=== PATIENT | female | born 1990 | race African-American/Black ===

== ENCOUNTER 2016-09-19 18:07 | Emergency (ER) | payer MEDICAID ==
--- NOTE | 2016-09-19 18:17 | ER Document Report ---
ED Medical Screen (RME) - General Stated Complaint: NAUSEA, DIZZINESS Time seen by provider: 18:14 Mode of Arrival: Ambulatory Information source: Patient Notes: 26-year-old female presents to the ED for dizziness nausea and the shakes this morning. She is 34 weeks and 2 days . States she's thrown up today 3 times. I have greeted and performed a rapid initial assessment of this patient. A comprehensive ED assessment and evaluation of the patient, analysis of test results and completion of medical decision making process will be conducted by an additional ED providers. TRAVEL OUTSIDE OF THE [place] IN LAST 30 DAYS: No Physical Exam - Vital signs Vitals: Temp Pulse Resp BP Pulse Ox 98.1 F 117 H 16 138/74 H 98 09/19/16 18:13 09/19/16 18:13 09/19/16 18:13 09/19/16 18:13 09/19/16 18:13 Course - Vital Signs Vital signs: Temp Pulse Resp BP Pulse Ox 98.1 F 117 H 16 138/74 H 98 09/19/16 18:13 09/19/16 18:13 09/19/16 18:13 09/19/16 18:13 09/19/16 18:13
[2016-09-19] MEDS ORDERED: ONDANSETRON HCL INJ/PF 4 MG/2 ML SDV IV ONE (18:40)
[2016-09-19] MEDS ORDERED: NORMAL SALINE 1000 ML 1,000 ML IV ONE (18:40)
--- NOTE | 2016-09-19 18:51 | ER Document Report ---
ED General - General Chief Complaint: Dizziness Stated Complaint: NAUSEA, DIZZINESS Mode of Arrival: Ambulatory Notes: 18-year-old female approximately 34 weeks gestation here with complaints of nausea vomiting 3-4 episodes today as well as some lightheadedness but no actual syncope. She states that she felt this way during the beginning of her however this improved and the symptoms started back up a week ago with the nausea and then the vomiting started today. She does not have any nausea medication at home and has not taken anything for the symptoms. She denies any abdominal pain vaginal bleeding discharge. She has not been able to keep anything down. TRAVEL OUTSIDE OF THE [place] IN LAST 30 DAYS: No - Related Data Allergies/Adverse Reactions: No Known Allergies Allergy (Verified 09/19/16 18:20) Past Medical History - General Information source: Patient - Social History Smoking Status: Never Smoker Chew tobacco use (# tins/day): No Drug Abuse: None Family History: Reviewed & Not Pertinent Patient has suicidal ideation: No Patient has homicidal ideation: No Renal/ Medical History: Denies: Hx Peritoneal Dialysis Review of Systems - Review of Systems Notes: See history of present illness for pertinent positive review of systems; otherwise all review of systems have been reviewed and are negative Physical Exam - Vital signs Vitals: Temp Pulse Resp BP Pulse Ox 98.1 F 117 H 16 138/74 H 98 09/19/16 18:13 09/19/16 18:13 09/19/16 18:13 09/19/16 18:13 09/19/16 18:13 - Notes Notes: PHYSICAL EXAMINATION: GENERAL: Well-appearing and in no acute distress. HEAD: Atraumatic, normocephalic. EYES: Pupils equal round and reactive to light, extraocular movements intact, sclera anicteric, conjunctiva are normal. ENT: nares patent, oropharynx clear without exudates. Moist mucous membranes. NECK: Normal range of motion, supple without lymphadenopathy LUNGS: CTAB and equal. No wheezes rales or rhonchi. HEART: Regular rhythm without murmurs; mildly tachycardic to 110s ABDOMEN: Soft, gravid abdomen, no tenderness. No guarding, no rebound EXTREMITIES: Normal range of motion, no pitting edema. No cyanosis. NEUROLOGICAL: Cranial nerves grossly intact. Normal sensory/motor exams. PSYCH: Normal mood, normal affect. SKIN: Warm, Dry, normal turgor, no rashes or lesions noted Course - Re-evaluation Re-evalutation: 09/19/16 18:58 MEDICAL DECISION MAKING: Concern for hyperemesis gravidarum versus viral gastroenteritis versus kidney failure Will give IV fluids and nausea medication Awaiting the results of the blood work at this time Patient understands and agrees to the plan of care 09/19/16 20:59 Results reviewed there is some hypoglycemia mild hyponatremia hypokalemia Urinalysis shows trace bacteria thus will read prescription for Macrobid Patient feels much better and is no longer having any nausea Discussed results with her and have ordered potassium and Tylenol per her request Home with prescription Zofran and Phenergan tab Phenergan suppository Macrobid 09/19/16 21:06 Patient's repeat exam reveals sig improved HR now in 90s - Vital Signs Vital signs: Temp Pulse Resp BP Pulse Ox 98.1 F 117 H 16 138/74 H 98 09/19/16 18:13 09/19/16 18:13 09/19/16 18:40 09/19/16 18:13 09/19/16 18:13 - Laboratory Result Diagrams: 09/19/16 18:20 09/19/16 20:05 Laboratory results interpreted by me: 09/19/16 09/19/16 09/19/16 18:20 18:20 20:05 MCV 74 L MCH 24.7 L RDW 16.1 H Sodium 133.5 L Potassium 3.5 L Carbon Dioxide 21 L BUN 4 L Creatinine 0.51 L Glucose 69 L Calcium 7.9 L ALT 55 H Alkaline Phosphatase 257 H Total Protein 5.4 L Albumin 3.1 L Urine Protein 30 H Urine Ketones 80 H Urine Ascorbic Acid 40 H Discharge - Discharge Clinical Impression: Lightheadedness, Nausea and vomiting during Condition: Good Disposition: HOME, SELF-CARE Instructions: Antinausea Medication ([facility]) Additional Instructions: You were seen in the emergency department at [facility]. Use the Zofran dissolvable for nausea. If this does not work use the Phenergan tablets. As a last resort you may use the Phenergan suppositories. You were given a prescription for Phenergan which is a sedating medication, be sure not to operate heavy machinery (example - driving) and be sure you are not too sedated to walk appropriately. Please followup with your primary physician in the next few days for further management/evaluation. Please return to the emergency department for worsening of symptoms or any symptom that you deem to be concerning or life-threatening. Thank you for allowing us to be part of your care. Prescriptions: Promethazine HCl [Phenergan 25 mg Tablet] 1 tab PO Q8HP PRN #15 tablet PRN Reason: Promethazine HCl 25 mg RC Q8HP PRN #7 supp.rect PRN Reason: For Nausea/Vomiting Nitrofurantoin/Nitrofuran Mac [Macrobid 100 mg Capsule] 1 tab PO BID #20 capsule Ondansetron [Zofran Odt 4 mg Tablet] 1 tab PO Q4H PRN #15 tab.rapdis PRN Reason: For Nausea/Vomiting Referrals: CAITLIN ESCOBAR MD [Primary Care Provider] - Follow up as needed
[2016-09-19 19:08] LABS: ABSOLUTE LYMPHOCYTES (AUTO) 3.3 10^3/uL (0.5-4.7); ABSOLUTE NEUT (AUTO) 5.9 10^3/uL (1.7-8.2); BASOPHILS % (AUTO) 0.3 % (0-2); EOSINOPHILS % (AUTO) 0.1 % (0-6); HEMATOCRIT 37.7 % (36.0-47.0); HEMOGLOBIN 12.5 g/dL (12.0-15.5); HGB HCT DIFFERENCE -0.2; LYMPHOCYTES % (AUTO) 32.2 % (13-45); MEAN CORPUSCULAR HEMOGLOBIN 24.7 pg (27.0-33.4); MEAN CORPUSCULAR HGB CONC 33.2 g/dL (32.0-36.0); MEAN CORPUSCULAR VOLUME 74 fl (80-97); MONOCYTES % (AUTO) 10.1 % (3-13); RED BLOOD COUNT 5.07 10^6/uL (3.72-5.28); RED CELL DISTRIBUTION WIDTH 16.1 % (11.5-14.0); SEGMENTED NEUTROPHILS % (AUTO) 57.3 % (42-78); WHITE BLOOD COUNT 10.3 10^3/uL (4.0-10.5)
[2016-09-19 19:12] LABS: APPEARANCE,URINE SLIGHTLY-CLOUDY; BILIRUBIN,URINE NEGATIVE (NEGATIVE); GLUCOSE, URINE NEGATIVE (NEGATIVE); KETONES,URINE 80 mg/dL (NEGATIVE); LEUKOCYTE ESTERASE,URINE NEGATIVE (NEGATIVE); NITRITE,URINE NEGATIVE (NEGATIVE); PROTEIN,URINE 30 mg/dL (NEGATIVE); UROBILINOGEN,URINE NEGATIVE mg/dL (<2.0)
[2016-09-19 20:40] LABS: ALANINE AMINOTRANSFERASE 55 U/L (9-52); ALBUMIN 3.1 g/dL (3.5-5.0); ALKALINE PHOSPHATASE 257 U/L (38-126); ANION GAP 12 (5-19); ASPARTATE AMINO TRANSFERASE 32 U/L (14-36); BILIRUBIN,TOTAL 0.9 mg/dL (0.2-1.3); BLOOD UREA NITROGEN 4 mg/dL (7-20); CALCIUM 7.9 mg/dL (8.4-10.2); CARBON DIOXIDE 21 mmol/L (22-30); CHLORIDE 101 mmol/L (98-107); CREATININE RESULT 0.51 mg/dL (0.52-1.25); GLUCOSE 69 mg/dL (75-110); POTASSIUM 3.5 mmol/L (3.6-5.0); SODIUM 133.5 mmol/L (137-145); TOTAL PROTEIN 5.4 g/dL (6.3-8.2)
[2016-09-19] MEDS ORDERED: DEXTROSE 5%-NORMAL SALINE 1,000 ML IV ONE (20:52)
[2016-09-19] MEDS ORDERED: ACETAMINOPHEN 325 MG TABLET PO ONE (20:58)
[2016-09-19] MEDS ORDERED: POTASSIUM CHLORIDE 10 MEQ TABLET.SA PO ONE (20:58)
[2016-09-19 22:24] VITALS: BP 121/63
== END 2016-09-19 22:23 | disposition home or self-care (01) ==
LOC: ER 18:07
DX: O26.93 Pregnancy related conditions, unspecified, third trimester (principal); R42 Dizziness and giddiness; R11.2 Nausea with vomiting, unspecified; Z3A.34 34 weeks gestation of pregnancy
CPT/HCPCS: 99284; 96361; 96374; 36415; 85025; 80053; 81001; J3490; J2405; J7030

== ENCOUNTER 2016-10-29 05:58 | Inpatient (IN) | payer MEDICAID ==
[2016-10-29 06:25] LABS: APPEARANCE,URINE SLIGHTLY-CLOUDY; BILIRUBIN,URINE NEGATIVE (NEGATIVE); GLUCOSE, URINE NEGATIVE (NEGATIVE); KETONES,URINE NEGATIVE (NEGATIVE); LEUKOCYTE ESTERASE,URINE NEGATIVE (NEGATIVE); NITRITE,URINE NEGATIVE (NEGATIVE); PROTEIN,URINE NEGATIVE (NEGATIVE); URINE SPECIFIC GRAVITY 1.005; UROBILINOGEN,URINE NEGATIVE mg/dL (<2.0)
[2016-10-29 06:41] LABS: URINE BARBITURATES SCREEN NEGATIVE; URINE METHADONE SCREEN NEGATIVE; URINE OPIATES LOW NEGATIVE; URINE PHENCYCLIDINE SCREEN NEGATIVE
[2016-10-29] MEDS ORDERED: HYDROXYZINE PAMOATE 50 MG CAPSULE ONE (07:32)
--- NOTE | 2016-10-29 08:00 | L&D Flow Sheet ---
LD Flowsheet Datetime Report Generated by CPN: 10/29/2016 08:00 Datetime: 10/29/2016 07:50 NBP Sys/Jackie/Mean (mmHg): 166 (QS system process) : 86 (QS system process) : 118 (QS system process) Pulse: 65 (QS system process) LaborFlag: Labor (QS system process) Datetime: 10/29/2016 07:35 Medications Medication Comments: Vistiril 50mg PO given (Priscilla Medina RN) Communication Comments: Reviewed kick counts, labor signs. Pt verbalizes understanding and will follow up at her appointment at 9am. (Priscilla Medina RN) Datetime: 10/29/2016 07:29 Communication Comments: Monitors removed. (Priscilla Medina, RN) Datetime: 10/29/2016 07:26 NBP Sys/Jackie/Mean (mmHg): 138 (QS system process) : 96 (QS system process) : 113 (QS system process) Pulse: 71 (QS system process) LaborFlag: Labor (QS system process) Datetime: 10/29/2016 07:25 Communication Comments: Report given to Dr. Aron. Orders to give Vistiril 50mg PO for comfort measures and to follow up at her appointment today. (Priscilla Medina, RN) Datetime: 10/29/2016 07:15 Patient Care I/O Interventions: Up to BR (Priscilla Medina, RN) Datetime: 10/29/2016 07:12 Communication Communication: Report Given to @ A.Medina, RN; care relinquished at this time. (Gina Field, RN) Datetime: 10/29/2016 07:00 Uterine Activity Monitor Mode: External; Palpation ([facility], RN) Frequency (min): 2-4 ([facility], RN) Quality: Mild (Gina Field, RN) Duration (sec): 60-100 ([facility], RN) Resting Tone (Palpate): Relaxed ([facility], RN) Assessment A Monitor Mode: External US ([facility], RN) FHR Baseline Rate : 125 ([facility], RN) Variability: Moderate 6-25 bpm ([facility], RN) Accelerations: 15X15 ([facility], RN) Decelerations: None ([facility], ) Datetime: 10/29/2016 06:57 Pain Pain Scale: 3 ([facility], ) Pain Presence: Intermittent ([facility], RN) Pain Type: Cramping ([facility], RN) Pain Location: Abdomen ([facility], RN) Pain Goal: 0 ([facility], ) Pain Relief Measures: Comfort Measures ([facility], ) Pain Coping: Talking Through Contractions; Breathing Through Contractions ([facility], RN) Vaginal Bleeding: Normal Show ([facility], ) Maternal Assessment Level of Consciousness: Fully Conscious ([facility], ) DTR's/Clonus: DTRs 2+; No Clonus ([facility], RN) Headache: Denies ([facility], RN) Breath Sounds, Left: Clear and Equal ([facility], RN) Breath Sounds, Right: Clear and Equal ([facility], RN) Nausea/Vomiting: Denies ([facility], RN) RUQ Epigastric Pain: Denies ([facility], RN) Teaching Instructional Method: Verbal; Patient Instructed; Family/Support Person Instructed; Verbalized Understanding (Gina Field, RN) LaborFlag: Labor (QS system process) Datetime: 10/29/2016 06:53 Vaginal Exam Dilatation (cm): 1.0 (Gina Carver, RN) Effacement (%): 50 (Gina Carver, RN) Station: -2 ([facility]ina Carevr, RN) Exam by: J.Field RN (Gina Carver, RN) Datetime: 10/29/2016 06:43 Patient Care I/O Interventions: Up to BR (Gina Field, RN) Datetime: 10/29/2016 06:30 Uterine Activity Monitor Mode: External; Palpation (Gina Field, RN) Frequency (min): 4.5-7 (Gina Field, RN) Quality: Mild (Gina Field, RN) Duration (sec): 60-100 (Gina Field, RN) Resting Tone (Palpate): Relaxed (Gina Field, RN) Assessment A Monitor Mode: External US (Gina Field, RN) FHR Baseline Rate : 125 (Gina Field, RN) Variability: Moderate 6-25 bpm (Gina Field, RN) Accelerations: None (Gina Field, RN) Decelerations: None (Gina Field, RN) Datetime: 10/29/2016 06:19 NBP Sys/Jackie/Mean (mmHg): 143 (QS system process) : 96 (QS system process) : 115 (QS system process) Pulse: 56 (QS system process) LaborFlag: Labor (QS system process) Datetime: 10/29/2016 06:14 Vital Signs Stage of : Labor (Priscilla Medina, RN)
[2016-10-29] MEDS ORDERED: DEXAMETHASONE SOD PHOSPHATE INJ 4 MG/1 ML VIAL ONE (08:21)
[2016-10-29] MEDS ORDERED: KETOROLAC TROMETHAMINE 60 MG/2 ML SDV ONE (08:21)
[2016-10-29] MEDS ORDERED: ONDANSETRON HCL INJ/PF 4 MG/2 ML SDV ONE (08:21)
[2016-10-29] MEDS ORDERED: OXYTOCIN/NORMAL SALINE 20 UNIT/1,000 ML RTUINJ ONE ×2 (08:37→23:29)
[2016-10-29] MEDS ORDERED: PENICILLIN G-K 5 MILLION UNIT VIAL ONE ×4 (08:37→21:49)
[2016-10-29] MEDS ORDERED: RINGERS SOLUTION,LACTATED 1,000 ML IV PRN (08:51)
[2016-10-29] MEDS ORDERED: OXYTOCIN/NORMAL SALINE 1,000 ML IV PRN (08:51)
[2016-10-29] MEDS ORDERED: RINGERS SOLUTION,LACTATED 300 ML IV ONE (08:51)
[2016-10-29] MEDS ORDERED: PENICILLIN G POTASSIUM 5,000,000 UNIT in DEXTROSE 5%-WATER 100 ML IV ONE (08:52)
[2016-10-29 08:55] LABS: ABSOLUTE EOSINOPHILS # (AUTO) 0.1 10^3/uL (0.0-0.6); ABSOLUTE LYMPHOCYTES (AUTO) 4.3 10^3/uL (0.5-4.7); ABSOLUTE MONOCYTES (AUTO) 0.7 10^3/uL (0.1-1.4); ABSOLUTE NEUT (AUTO) 4.7 10^3/uL (1.7-8.2); BASOPHILS % (AUTO) 0.4 % (0-2); EOSINOPHILS % (AUTO) 1.1 % (0-6); HEMATOCRIT 38.9 % (36.0-47.0); HEMOGLOBIN 13.2 g/dL (12.0-15.5); HGB HCT DIFFERENCE 0.7; LYMPHOCYTES % (AUTO) 43.1 % (13-45); MEAN CORPUSCULAR HEMOGLOBIN 24.7 pg (27.0-33.4); MEAN CORPUSCULAR HGB CONC 33.9 g/dL (32.0-36.0); MEAN CORPUSCULAR VOLUME 73 fl (80-97); MONOCYTES % (AUTO) 7.5 % (3-13); RED BLOOD COUNT 5.33 10^6/uL (3.72-5.28); SEGMENTED NEUTROPHILS % (AUTO) 47.9 % (42-78); WHITE BLOOD COUNT 9.9 10^3/uL (4.0-10.5)
[2016-10-29 09:18] LABS: ALANINE AMINOTRANSFERASE 25 U/L (9-52); ALBUMIN 3.4 g/dL (3.5-5.0); ALKALINE PHOSPHATASE 205 U/L (38-126); ANION GAP 9 (5-19); ASPARTATE AMINO TRANSFERASE 22 U/L (14-36); BILIRUBIN,TOTAL 0.6 mg/dL (0.2-1.3); BLOOD UREA NITROGEN 8 mg/dL (7-20); CALCIUM 9.4 mg/dL (8.4-10.2); CARBON DIOXIDE 24 mmol/L (22-30); CHLORIDE 106 mmol/L (98-107); CREATININE RESULT 0.56 mg/dL (0.52-1.25); GLUCOSE 75 mg/dL (75-110); LDH 484 U/L (313-618); POTASSIUM 4.2 mmol/L (3.6-5.0); SODIUM 138.8 mmol/L (137-145); TOTAL PROTEIN 6.5 g/dL (6.3-8.2); URIC ACID 5.9 mg/dL (2.5-6.2)
--- NOTE | 2016-10-29 10:00 | L&D Flow Sheet ---
LD Flowsheet Datetime Report Generated by CPN: 10/29/2016 10:00 Datetime: 10/29/2016 09:55 NBP Sys/Jackie/Mean (mmHg): 132 (QS system process) : 69 (QS system process) : 97 (QS system process) Pulse: 71 (QS system process) LaborFlag: Labor (QS system process) Datetime: 10/29/2016 09:47 NBP Sys/Jackie/Mean (mmHg): 162 (QS system process) : 80 (QS system process) : 113 (QS system process) Pulse: 70 (QS system process) LaborFlag: Labor (QS system process) Datetime: 10/29/2016 09:44 Temperature (F): 98.0 (Priscilla Medina RN) Temperature (C): 36.7 (QS system process) Pitocin (milliunit): Pitocin Started (milliunits) @ 2; Pitocin 20 Units in 1000ml NS (Priscilla Medina RN) Antibiotics: Penicillin IV (Units) @ 2866617 (Priscilla Medina RN) LaborFlag: Labor (QS system process) Datetime: 10/29/2016 09:42 NBP Sys/Jackie/Mean (mmHg): 184 (QS system process) : 120 (QS system process) : 147 (QS system process) Pulse: 63 (QS system process) LaborFlag: Labor (QS system process) Datetime: 10/29/2016 09:14 IV/Blood Work: IV Started; IV Bolus Started (Priscilla Medina, RN) Datetime: 10/29/2016 09:00 Monitor Mode: External (Priscilla Medina, RN) Frequency (min): 3-10 (Priscilla Medina, RN) Quality: Mild (Priscilla Medina, RN) Duration (sec): 50-60 (Priscilla Medina, RN) Duration Criteria: Less than Two 120 Second Contractions (Priscilla Medina, RN) Pattern: Normal: <= 5 Contractions in 10 Minutes (Priscilla Medina, RN) Resting Tone (Palpate): Relaxed (Priscilla Medina, RN) Monitor Mode: External US (Priscilla Medina RN) Comments: unable to determine due to pt position, attempting to get IV started (Priscilla Medina, RN) Datetime: 10/29/2016 08:30 Monitor Mode: External (Priscilla Medina, RN) Frequency (min): 3-6 (Priscilla Medina RN) Quality: Mild (Priscilla Medina, RN) Duration (sec): 50-60 (Priscilla Medina, RN) Resting Tone (Palpate): Relaxed (Priscilla Medina, RN) Monitor Mode: External US (Priscilla Medina RN) FHR Baseline Rate : 125 (Priscilla Medina RN) Variability: Moderate 6-25 bpm (Priscilla Medina, RN) Accelerations: 10X10 (Priscilla Medina, RN) Decelerations: None (Priscilla Medina, RN) Datetime: 10/29/2016 08:24 Dilatation (cm): 1.0 (Priscilla Medina RN) Effacement (%): 70 (Priscilla Medina RN) Station: -2 (Priscilla Medina RN) Exam by: Tracy Strong CNM (Priscilla Medina RN) Vaginal Bleeding: None (Priscilla Medina RN) Cervix, Consistency: Soft (Priscilla Medina, RN) Cervix, Position: Midposition (Priscilla Medina, RN) Datetime: 10/29/2016 08:21 Communication Comments: A. Emmel CNM at bedside (Priscilla Medina, RN) Datetime: 10/29/2016 08:07 NBP Sys/Jackie/Mean (mmHg): 148 (QS system process) : 88 (QS system process) : 113 (QS system process) Pulse: 71 (QS system process) LaborFlag: Labor (QS system process) Datetime: 10/29/2016 08:04 NBP Sys/Jackie/Mean (mmHg): 166 (QS system process) : 99 (QS system process) : 127 (QS system process) Pulse: 63 (QS system process) LaborFlag: Labor (QS system process) Datetime: 10/29/2016 08:00 Pain Scale: 2 (Priscilla Medina RN) Pain Presence: Intermittent (Priscilla Medina RN) Pain Type: Contraction (Priscilla Medina RN) Vaginal Bleeding: Normal Show (Priscilla Medina RN) Level of Consciousness: Fully Conscious (Priscilla Medina RN) DTR's/Clonus: DTRs 2+; No Clonus (Priscilla Medina RN) Headache: Denies (Priscilla Medina RN) Breath Sounds, Left: Clear and Equal (Priscilla Medina RN) Breath Sounds, Right: Clear and Equal (Priscilla Medina RN) Nausea/Vomiting: Denies (Priscilla Medina RN) RUQ Epigastric Pain: Denies (Priscilla Medina RN) LaborFlag: Labor (QS system process)
[2016-10-29] MEDS ORDERED: EPHEDRINE SULFATE INJ 50 MG/1 ML AMPULE ONE (10:29)
[2016-10-29] MEDS ORDERED: FENTANYL CITRATE INJ/PF 100 MCG/2 ML AMPUL ONE ×2 (10:29→23:28)
[2016-10-29] MEDS ORDERED: PHENYLEPHRINE HCL INJ/PF 10 MG/1 ML SDV ONE (10:29)
[2016-10-29] MEDS ORDERED: FENTANYL/BUPIVACAINE/NS/PF 200 MCG/100 ML RTUINJ EPI ONE ×2 (10:30→21:39)
[2016-10-29] MEDS ORDERED: BUPIVACAINE HCL 0.25 % INJ/PF (2.5 MG/1 ML) 30 ML VIAL ONE (10:30)
--- NOTE | 2016-10-29 12:00 | L&D Flow Sheet ---
LD Flowsheet Datetime Report Generated by CPN: 10/29/2016 12:00 Datetime: 10/29/2016 11:46 I/O Interventions: Delgado Cath Inserted (Priscilla Medina, RN) Datetime: 10/29/2016 11:45 NBP Sys/Jackie/Mean (mmHg): 150 (QS system process) : 82 (QS system process) : 108 (QS system process) Pulse: 79 (QS system process) LaborFlag: Labor (QS system process) Datetime: 10/29/2016 11:43 NBP Sys/Jackie/Mean (mmHg): 140 (QS system process) : 73 (QS system process) : 99 (QS system process) Pulse: 80 (QS system process) LaborFlag: Labor (QS system process) Datetime: 10/29/2016 11:42 NBP Sys/Jackie/Mean (mmHg): 141 (QS system process) : 72 (QS system process) : 100 (QS system process) Pulse: 72 (QS system process) LaborFlag: Labor (QS system process) Datetime: 10/29/2016 11:39 NBP Sys/Jackie/Mean (mmHg): 159 (QS system process) : 89 (QS system process) : 118 (QS system process) Pulse: 72 (QS system process) LaborFlag: Labor (QS system process) Datetime: 10/29/2016 11:38 NBP Sys/Jackie/Mean (mmHg): 154 (QS system process) : 79 (QS system process) : 110 (QS system process) Pulse: 72 (QS system process) LaborFlag: Labor (QS system process) Datetime: 10/29/2016 11:37 NBP Sys/Jackie/Mean (mmHg): 163 (QS system process) : 83 (QS system process) : 112 (QS system process) Pulse: 72 (QS system process) Epidural Procedure: Loading Dose (Priscilla Medina RN) Epidural Procedure: Cath Placed (Priscilla Medina RN) LaborFlag: Labor (QS system process) Datetime: 10/29/2016 11:36 Epidural Procedure: Test Dose (Priscilla Medina, RN) Datetime: 10/29/2016 11:35 Pulse: 83 (QS system process) SpO2 (%): 96 (QS system process) LaborFlag: Labor (QS system process) Datetime: 10/29/2016 11:34 NBP Sys/Jackie/Mean (mmHg): 156 (QS system process) : 97 (QS system process) : 119 (QS system process) Pulse: 99 (QS system process) LaborFlag: Labor (QS system process) Datetime: 10/29/2016 11:30 Pulse: 81 (QS system process) Pulse: 84 (QS system process) SpO2 (%): 98 (QS system process) SpO2 (%): 93 (QS system process) LaborFlag: Labor (QS system process) Datetime: 10/29/2016 11:28 Procedure Verify: Correct Patient Identity; Correct Side and Site are Marked; Accurate Procedure Consent Form; Agreement on Procedure to be Done; Correct Patient Position (Priscilla Medina RN) Epidural Positioning: Sitting (Priscilla Medina RN) Anesthesia Comments: Dr Almeida at bedside (Priscilla Medina RN) Datetime: 10/29/2016 11:20 I/O Interventions: Up to BR (Priscilla Medina, VIRY) Datetime: 10/29/2016 11:10 I/O Interventions: Popsicle (Priscilla Medina RN) Datetime: 10/29/2016 11:00 Monitor Mode: External; Palpation (Priscilla Medina RN) Frequency (min): 2-3 (Priscilla Medina RN) Quality: Mild (Priscilla Medina RN) Duration (sec): 50-80 (Priscilla Medina RN) Duration Criteria: Less than Two 120 Second Contractions (Priscilla Medina RN) Pattern: Normal: <= 5 Contractions in 10 Minutes (Priscilla Medina RN) Resting Tone (Palpate): Relaxed (Priscilla Medina RN) Monitor Mode: External US (Priscilla Medina RN) FHR Baseline Rate : 125 (Priscilla Medina RN) Variability: Moderate 6-25 bpm (Priscilla Medina RN) Accelerations: 15X15 (Priscilla Medina RN) Decelerations: None (Priscilla Medina RN) Pain Scale: 3 (Priscilla Medina RN) Pain Presence: Intermittent (Priscilla Medina RN) Pain Type: Contraction (Priscilla Medina RN) Pain Location: Abdomen (Priscilla Medina RN) Pain Relief Measures: Comfort Measures (Priscilla Medina RN) Pain Coping: Requesting Pain Medication or Epidural (Priscilla Medina RN) Pitocin (milliunit): Pitocin Increased to (milliunits) @ 10 (Priscilla Medina RN) LaborFlag: Labor (QS system process) Datetime: 10/29/2016 10:55 NBP Sys/Jackie/Mean (mmHg): 172 (QS system process) : 105 (QS system process) : 132 (QS system process) Pulse: 69 (QS system process) LaborFlag: Labor (QS system process) Datetime: 10/29/2016 10:45 Comments: unable to determine due to pt position, readjusting monitors (Priscilla Medina RN) Pitocin (milliunit): Pitocin Remains (milliunits) @ 8 (Priscilla Medina RN) Datetime: 10/29/2016 10:43 Patient Position/Activity: Left Lateral (Priscilla Medina, RN) Datetime: 10/29/2016 10:39 IV/Blood Work: New IV Bag Hung (Priscilla Medina, RN) Datetime: 10/29/2016 10:38 Monitor Interventions for FHR: Ultrasound Adjusted (Priscilla Medina, RN) Patient Position/Activity: Right Lateral (Priscilla Medina, RN) Communication: RN at Bedside (Priscilla Medina, RN) Datetime: 10/29/2016 10:37 Monitor Interventions for UA: [place] Adjusted (Priscilla Medina RN) Datetime: 10/29/2016 10:33 Monitor Interventions for UA: [place] Adjusted (Priscilla Medina RN) Datetime: 10/29/2016 10:30 Monitor Mode: External (Priscilla Medina RN) Frequency (min): 3-4 (Priscilla Medina RN) Quality: Mild (Priscilla Medina RN) Duration (sec): 50-70 (Priscilla Medina RN) Resting Tone (Palpate): Relaxed (Priscilla Medina RN) Monitor Mode: External US (Priscilla Medina, RN) FHR Baseline Rate : 130 (Priscilla Medina RN) Variability: Moderate 6-25 bpm (Priscilla Medina, RN) Accelerations: 15X15 (Priscilla Medina, RN) Decelerations: None (Priscilla Medina RN) Pitocin (milliunit): Pitocin Increased to (milliunits) @ 8 (Priscilla Medina, RN) Datetime: 10/29/2016 10:26 NBP Sys/Jackie/Mean (mmHg): 153 (QS system process) : 76 (QS system process) : 107 (QS system process) Pulse: 67 (QS system process) LaborFlag: Labor (QS system process) Datetime: 10/29/2016 10:16 NBP Sys/Jackie/Mean (mmHg): 166 (QS system process) : 89 (QS system process) : 120 (QS system process) Pulse: 63 (QS system process) LaborFlag: Labor (QS system process) Datetime: 10/29/2016 10:15 Monitor Mode: External (Priscilla Medina, RN) Frequency (min): irreg (Priscilla Medina, RN) Quality: Mild (Priscilla Medina, RN) Duration (sec): 50-70 (Priscilla Medina, RN) Resting Tone (Palpate): Relaxed (Priscilla Medina, RN) Monitor Mode: External US (Priscilla Medina RN) FHR Baseline Rate : 130 (Priscilla Medina, RN) Variability: Moderate 6-25 bpm (Priscilla Medina, RN) Accelerations: 10X10 (Priscilla Medina, RN) Decelerations: None (Priscilla Medina, RN) Pitocin (milliunit): Pitocin Increased to (milliunits) @ 6 (Priscilla Medina, RN) Datetime: 10/29/2016 10:07 I/O Interventions: Up to BR (Priscilla Medina, RN) Datetime: 10/29/2016 10:00 Monitor Mode: External (Priscilla Medina RN) Frequency (min): irreg (Priscilla Medina RN) Quality: Mild (Priscilla Medina RN) Duration (sec): 50-70 (Priscilla Medina RN) Resting Tone (Palpate): Relaxed (Priscilla Medina RN) Monitor Mode: External US (Priscilla Medina RN) FHR Baseline Rate : 125 (Priscilla Medina RN) Variability: Moderate 6-25 bpm (Priscilla Medina, RN) Accelerations: 15X15 (Priscilla Medina, RN) Decelerations: None (Priscilla Medina RN) Pitocin (milliunit): Pitocin Increased to (milliunits) @ 4 (Priscilla Medina, RN)
[2016-10-29] MEDS ORDERED: PENICILLIN G POTASSIUM 2,500,000 UNIT in DEXTROSE 5%-WATER 50 ML IV SCH (12:52)
[2016-10-29] MEDS: PENICILLIN G-K 5 MILLION UNIT VIAL IV SCH ×2 (13:34→17:39)
--- NOTE | 2016-10-29 14:00 | L&D Flow Sheet ---
LD Flowsheet Datetime Report Generated by CPN: 10/29/2016 14:00 Datetime: 10/29/2016 13:49 NBP Sys/Jackie/Mean (mmHg): 144 (QS system process) : 99 (QS system process) : 116 (QS system process) Pulse: 86 (QS system process) LaborFlag: Labor (QS system process) Datetime: 10/29/2016 13:45 Monitor Mode: External (Priscilla Medina RN) Frequency (min): 2-3 (Priscilla Medina RN) Quality: Mild/Moderate (Priscilla Medina RN) Duration (sec): 50-60 (Priscilla Medina RN) Resting Tone (Palpate): Relaxed (Priscilla Medina RN) Monitor Mode: External US (Priscilla Medina RN) FHR Baseline Rate : 130 (Priscilla Medina RN) Variability: Moderate 6-25 bpm (Priscilla Medina RN) Accelerations: 15X15 (Priscilla Medina RN) Decelerations: Variable (Priscilla Medina RN) Datetime: 10/29/2016 13:36 I/O Interventions: Popsicle (Priscilla Medina RN) Datetime: 10/29/2016 13:35 Respirations: 14 (Priscilla Medina RN) Temperature (F): 97.6 (Priscilla Medina RN) Temperature (C): 36.4 (QS system process) Pain Presence: None/Denies (Priscilla Medina RN) Pain Coping: Talking Through Contractions (Priscilla Medina RN) LaborFlag: Labor (QS system process) Datetime: 10/29/2016 13:33 NBP Sys/Jackie/Mean (mmHg): 142 (QS system process) : 83 (QS system process) : 107 (QS system process) Pulse: 69 (QS system process) Antibiotics: Penicillin IV (Units) @ 2.5 million (Priscilla Medina RN) LaborFlag: Labor (QS system process) Datetime: 10/29/2016 13:30 Monitor Mode: External (Priscilla Medina RN) Frequency (min): 2-4 (Priscilla Medina RN) Quality: Mild/Moderate (Priscilla Medina RN) Duration (sec): 50-60 (Priscilla Medina RN) Resting Tone (Palpate): Relaxed (Priscilla Medina RN) Monitor Mode: External US (Priscilla Medina RN) FHR Baseline Rate : 125 (Priscilla Medina RN) Variability: Moderate 6-25 bpm (Priscilla Medina RN) Accelerations: 15X15 (Priscilla Medina RN) Decelerations: Variable (Priscilla Medina RN) Datetime: 10/29/2016 13:21 Dilatation (cm): 3.0 (Priscilla Medina RN) Effacement (%): 90 (Priscilla Medina RN) Station: -1 (Priscilla Medina RN) Exam by: FermínKaur Amywilfrido CNRuss (Priscilla Medina RN) Membrane Status: Ruptured (Priscilla Medina RN) Membranes Rupture Method: Artificial (Priscilla Medina RN) Amniotic Fluid Color: Moderate Meconium (Priscilla Medina RN) Amniotic Fluid Amount: Moderate (Priscilla Medina RN) Amniotic Fluid Odor: Normal (Priscilla Medina RN) Datetime: 10/29/2016 13:20 Communication Comments: Tracy Strong CNM at bedside (Priscilla Medina RN) Datetime: 10/29/2016 13:18 NBP Sys/Jackie/Mean (mmHg): 142 (QS system process) : 88 (QS system process) : 109 (QS system process) Pulse: 71 (QS system process) LaborFlag: Labor (QS system process) Datetime: 10/29/2016 13:15 Monitor Mode: External (Priscilla Medina RN) Frequency (min): 2-3 (Priscilla Medina RN) Quality: Mild/Moderate (Priscilla Medina RN) Duration (sec): 50-60 (Priscilla Medina RN) Resting Tone (Palpate): Relaxed (Priscilla Medina RN) Monitor Mode: External US (Priscilla Medina RN) FHR Baseline Rate : 130 (Priscilla Medina RN) Variability: Moderate 6-25 bpm (Priscilla Medina RN) Accelerations: 10X10 (Priscilla Medina RN) Decelerations: Variable (Priscilla Medina RN) Pitocin (milliunit): Pitocin Increased to (milliunits) @ 20 (Priscilla Medina RN) Datetime: 10/29/2016 13:03 NBP Sys/Jackie/Mean (mmHg): 137 (QS system process) : 79 (QS system process) : 100 (QS system process) Pulse: 78 (QS system process) LaborFlag: Labor (QS system process) Datetime: 10/29/2016 13:00 Monitor Mode: External (Priscilla Medina RN) Frequency (min): 2-3 (Priscilla Medina RN) Quality: Mild/Moderate (Priscilla Medina RN) Duration (sec): 50-80 (Priscilla Medina RN) Resting Tone (Palpate): Relaxed (Priscilla Medina RN) Monitor Mode: External US (Priscilla Medina RN) FHR Baseline Rate : 125 (Priscilla Medina RN) Variability: Moderate 6-25 bpm (Priscilla Medina RN) Accelerations: 15X15 (Priscilla Medina, RN) Decelerations: None (Priscilla Medina, RN) Pitocin (milliunit): Pitocin Increased to (milliunits) @ 18 (Priscilla Medina RN) Datetime: 10/29/2016 12:48 NBP Sys/Jackie/Mean (mmHg): 153 (QS system process) : 77 (QS system process) : 107 (QS system process) Pulse: 77 (QS system process) LaborFlag: Labor (QS system process) Datetime: 10/29/2016 12:45 Monitor Mode: External (Priscilla Medina RN) Frequency (min): 2-4 (Priscilla Medina RN) Quality: Mild/Moderate (Priscilla Medina RN) Duration (sec): 50-80 (Priscilla Medina RN) Resting Tone (Palpate): Relaxed (Priscilla Medina RN) Monitor Mode: External US (Priscilla Medina RN) FHR Baseline Rate : 125 (Priscilla Medina RN) Variability: Moderate 6-25 bpm (Priscilla Medina RN) Accelerations: 10X10 (Priscilla Medina RN) Decelerations: None (Priscilla Medina RN) Pitocin (milliunit): Pitocin Remains (milliunits) @ 16 (Priscilla Medina RN) Datetime: 10/29/2016 12:34 NBP Sys/Jackie/Mean (mmHg): 162 (QS system process) : 82 (QS system process) : 115 (QS system process) Pulse: 63 (QS system process) LaborFlag: Labor (QS system process) Datetime: 10/29/2016 12:30 Monitor Mode: External (Priscilla Medina RN) Frequency (min): 2-4 (Priscilla Medina RN) Quality: Mild/Moderate (Priscilla Medina RN) Duration (sec): 50-90 (Priscilla Medina RN) Resting Tone (Palpate): Relaxed (Priscilla Medina RN) Monitor Mode: External US (Priscilla Medina RN) FHR Baseline Rate : 130 (Priscilla Medina RN) Variability: Moderate 6-25 bpm (Priscilla Medina RN) Accelerations: 10X10 (Priscilla Medina RN) Decelerations: Early; Variable (Priscilla Medina RN) Pitocin (milliunit): Pitocin Increased to (milliunits) @ 16 (Priscilla Medina RN) Patient Position/Activity: Left Lateral (Priscilla Medina RN) Datetime: 10/29/2016 12:20 NBP Sys/Jackie/Mean (mmHg): 159 (QS system process) : 76 (QS system process) : 109 (QS system process) Pulse: 81 (QS system process) LaborFlag: Labor (QS system process) Datetime: 10/29/2016 12:15 Monitor Mode: External; Palpation (Priscilla Medina RN) Frequency (min): 2-3 (Priscilla Medina RN) Quality: Mild/Moderate (Priscilla Medina RN) Duration (sec): 60-90 (Priscilla Medina RN) Resting Tone (Palpate): Relaxed (Priscilla Medina RN) Monitor Mode: External US (Priscilla Medina RN) FHR Baseline Rate : 135 (Priscilla Medina RN) Variability: Moderate 6-25 bpm (Priscilla Medina RN) Accelerations: None (Priscilla Medina RN) Decelerations: Early (Priscilla Medina RN) Pitocin (milliunit): Pitocin Remains (milliunits) @ 14 (Priscilla Medina RN) Datetime: 10/29/2016 12:04 NBP Sys/Jackie/Mean (mmHg): 145 (QS system process) : 78 (QS system process) : 105 (QS system process) Pulse: 80 (QS system process) LaborFlag: Labor (QS system process) Datetime: 10/29/2016 12:01 Monitor Mode: External (Priscilla Medina RN) Frequency (min): 1.5-3 (Priscilla Medina RN) Quality: Mild (Priscilla Medina RN) Duration (sec): 50-60 (Priscilla Medina RN) Resting Tone (Palpate): Relaxed (Priscilla Medina RN) Monitor Mode: External US (Priscilla Medina RN) FHR Baseline Rate : 135 (Priscilla Medina RN) Variability: Moderate 6-25 bpm (Priscilla Medina RN) Accelerations: 10X10 (Priscilla Medina RN) Decelerations: None (Priscilla Medina RN) Datetime: 10/29/2016 12:00 Pain Scale: 1 (Priscilla Medina RN) Pain Presence: Intermittent (Priscilla Medina RN) Pain Type: Contraction (Priscilla Medina RN) Pain Location: Abdomen (Priscilla eMdina RN) Pain Coping: Talking Through Contractions (Priscilla Medina RN) Pitocin (milliunit): Pitocin Increased to (milliunits) @ 14 (Priscilla Medina RN) LaborFlag: Labor (QS system process)
--- NOTE | 2016-10-29 14:00 | L&D Progress Notes ---
PROGRESS NOTES Datetime Report Generated by CPN: 10/29/2016 14:00 PROGRESS NOTE Impression: Normal Progression of Labor Procedures: Artificial ROM Plan: Continue Present Management Informed Consent Obtained: Vaginal Delivery Informed Consent Obtained: Vaginal Delivery; Induction of Labor; Risks, Benefits and Alternatives Discussed Vital Signs : Reviewed Comment: post epidural placement labile bps no headaches/ blurred vision/ no ruq pain reviewed with Dr. Stewart will monitor bps if continued will give pt labetalol 100 mg po. reviewed with pt and spouse VAGINAL EXAM Dilatation: 3 Dilatation: 1 Effacement: 90 Effacement: 70 Station: -1 Station: -2 MEMBRANES Membranes: Intact FETUS A FHR - Baseline: 120 Monitoring: External US Accelerations: 10X10 Decelerations: Early : 40.1 Presentation: Vertex SIGNATURE SIGNATURE: [id number] Assignment: Rosa Stewart MD Signature: with User ID: [email or web address] : with User ID: [email or web address]
--- NOTE | 2016-10-29 15:10 | L&D Progress Notes ---
PROGRESS NOTES Datetime Report Generated by CPN: 10/29/2016 15:10 PROGRESS NOTE Comment: pt on peanut ball abdomen nontender pitocin halved to 10 milliunits/ min difficult to discern contraction pattern iupc placed without difficulty moderate to heavy meconium continue gbs prophylaxis VAGINAL EXAM Dilatation: 3 Effacement: 90 Station: -2 MEMBRANES Membranes: Ruptured Amniotic Fluid Color: Meconium, Heavy FETUS A Monitoring: External US Decelerations: None : 40.1 FETUS C SIGNATURE: [id number] Assignment: Rosa Stewart MD Signature: with User ID: Agustín : with User ID: Agustín
--- NOTE | 2016-10-29 16:00 | L&D Flow Sheet ---
LD Flowsheet Datetime Report Generated by CPN: 10/29/2016 16:00 Datetime: 10/29/2016 15:48 NBP Sys/Jackie/Mean (mmHg): 141 (QS system process) : 82 (QS system process) : 107 (QS system process) Pulse: 96 (QS system process) LaborFlag: Labor (QS system process) Datetime: 10/29/2016 15:45 Temperature (F): 97.9 (Priscilla Medina RN) Temperature (C): 36.6 (QS system process) Monitor Mode: External (Priscilla Medina RN) Frequency (min): 2-4 (Priscilla Medina RN) Quality: Mild/Moderate (Priscilla Medina RN) Duration (sec): 50-70 (Priscilla Medina RN) Resting Tone (Palpate): Relaxed (Priscilla Medina RN) Resting Tone IUP (mmHg): 25 (Priscilla Medina RN) Intensity IUP (mmHg): 60 (Priscilla Medina RN) Contraction Comments: MVU 180 (Priscilla Medina RN) Monitor Mode: External US (Priscilla Medina RN) FHR Baseline Rate : 135 (Priscilla Medina RN) Variability: Moderate 6-25 bpm (Priscilla Medina RN) Accelerations: None (Priscilla Medina RN) Decelerations: Early; Variable (Priscilla Medina RN) Pain Presence: None/Denies (Priscilla Medina RN) Pain Coping: Talking Through Contractions (Priscilla Medina RN) Pitocin (milliunit): Pitocin Increased to (milliunits) @ 16 (Priscilla Medina RN) LaborFlag: Labor (QS system process) Datetime: 10/29/2016 15:33 NBP Sys/Jackie/Mean (mmHg): 146 (QS system process) : 83 (QS system process) : 108 (QS system process) Pulse: 70 (QS system process) LaborFlag: Labor (QS system process) Datetime: 10/29/2016 15:30 Monitor Mode: Internal (Priscilla Medina RN) Frequency (min): 2-3 (Priscilla Medina RN) Quality: Mild/Moderate (Priscilla Medina RN) Duration (sec): 50-70 (Priscilla Medina RN) Resting Tone (Palpate): Relaxed (Priscilla Medina RN) Resting Tone IUP (mmHg): 25 (Priscilla Medina, RN) Intensity IUP (mmHg): 45 (Priscilla Medina, RN) Contraction Comments: MVU 180 (Priscilla Medina RN) Monitor Mode: External US (Priscilla Medina RN) FHR Baseline Rate : 135 (Priscilla Medina RN) Variability: Moderate 6-25 bpm (Priscilla Medina, RN) Accelerations: None (Priscilla Medina RN) Decelerations: Early; Variable (Priscilla Medina RN) Pitocin (milliunit): Pitocin Increased to (milliunits) @ 14 (Priscilla Medina, RN) Datetime: 10/29/2016 15:21 Resting Tone IUP (mmHg): 25 (Priscilla Medina RN) Intensity IUP (mmHg): 36 (Priscilla Medina, RN) Contraction Comments: MVU 145 (Priscilla Medina, RN) Datetime: 10/29/2016 15:19 NBP Sys/Jackie/Mean (mmHg): 144 (QS system process) : 85 (QS system process) : 107 (QS system process) Pulse: 70 (QS system process) LaborFlag: Labor (QS system process) Datetime: 10/29/2016 15:15 Monitor Mode: Internal (Priscilla Medina RN) Frequency (min): 2-2.5 (Priscilla Medina RN) Quality: Mild/Moderate (Priscilla Medina RN) Duration (sec): 50-80 (Priscilla Medina RN) Resting Tone (Palpate): Relaxed (Priscilla Medina RN) Monitor Mode: External US (Priscilla Medina RN) FHR Baseline Rate : 145 (Priscilla Medina RN) Variability: Moderate 6-25 bpm (Priscilla Medina RN) Accelerations: 10X10 (Priscilla Medina RN) Decelerations: None (Priscilla Medina RN) Pitocin (milliunit): Pitocin Increased to (milliunits) @ 12 (Priscilla Medina RN) Datetime: 10/29/2016 15:09 NBP Sys/Jackie/Mean (mmHg): 133 (QS system process) : 75 (QS system process) : 99 (QS system process) Pulse: 81 (QS system process) LaborFlag: Labor (QS system process) Datetime: 10/29/2016 15:06 Patient Position/Activity: Right Lateral (Priscilla Medina, RN) Datetime: 10/29/2016 15:04 Monitor Interventions for UA: IUPC Inserted (Priscilla Medina, RN) Datetime: 10/29/2016 15:00 Monitor Mode: External (Priscilla Medina RN) Resting Tone (Palpate): Relaxed (Priscilla Medina RN) Contraction Comments: contractions not tracing on monitor (Priscilla Medina RN) Monitor Mode: External US (Priscilla Medina RN) FHR Baseline Rate : 135 (Priscilla Medina RN) Variability: Moderate 6-25 bpm (Priscilla Medina RN) Accelerations: 10X10 (Priscilla Medina RN) Decelerations: None (Priscilla Medina RN) Pitocin (milliunit): Pitocin Remains (milliunits) @ 10 (Priscilla Medina RN) Datetime: 10/29/2016 14:49 NBP Sys/Jackie/Mean (mmHg): 134 (QS system process) : 75 (QS system process) : 99 (QS system process) Pulse: 64 (QS system process) LaborFlag: Labor (QS system process) Datetime: 10/29/2016 14:45 Monitor Mode: External US (Priscilla Medina, RN) Comments: FHTs 135s. Attempting to readjust monitors (Priscilla Medina, RN) Pitocin (milliunit): Pitocin Remains (milliunits) @ 10 (Priscilla Medina, RN) Datetime: 10/29/2016 14:37 Monitor Interventions for UA: [place] [employer] Adjusted (Priscilla Medina, RN) Datetime: 10/29/2016 14:31 Monitor Interventions for FHR: Ultrasound Adjusted (Priscilla Adam, RN) Communication: RN at Bedside (Priscilla Medina, RN) Datetime: 10/29/2016 14:30 FHR Baseline Rate : 135 (Priscilla Medina RN) Comments: attempting to readjust monitors (Priscilla Medina RN) Pitocin (milliunit): Pitocin Decreased to (milliunits) @ 10 (Priscilla Medina RN) Patient Position/Activity: Left Extreme; Peanut Ball (Priscilla Medina RN) Datetime: 10/29/2016 14:20 NBP Sys/Jackie/Mean (mmHg): 131 (QS system process) : 67 (QS system process) : 92 (QS system process) Pulse: 70 (QS system process) LaborFlag: Labor (QS system process) Datetime: 10/29/2016 14:16 Monitor Interventions for UA: [place] [employer] Adjusted (Priscilla Medina RN) Datetime: 10/29/2016 14:15 Monitor Mode: External US (Priscilla Adam, RN) FHR Baseline Rate : 135 (Priscilla Adam, RN) Comments: attempting to readjust monitors (Priscilla Medina, RN) Datetime: 10/29/2016 14:06 NBP Sys/Jackie/Mean (mmHg): 132 (QS system process) : 65 (QS system process) : 94 (QS system process) Pulse: 75 (QS system process) LaborFlag: Labor (QS system process) Datetime: 10/29/2016 14:01 Monitor Interventions for FHR: Ultrasound Adjusted (Priscilla Medina RN) Communication: RN at Bedside (Priscilla Medina RN) Datetime: 10/29/2016 14:00 Monitor Mode: External (Priscilla Medina RN) Frequency (min): 2-4 (Priscilla Medina RN) Quality: Mild/Moderate (Priscilla Medina RN) Duration (sec): 50-80 (Priscilla Medina RN) Resting Tone (Palpate): Relaxed (Priscilla Medina RN) Monitor Mode: External US (Priscilla Medina RN) FHR Baseline Rate : 125 (Priscilla Medina RN) Variability: Moderate 6-25 bpm (Priscilla Medina RN) Accelerations: 15X15 (Priscilla Medina RN) Decelerations: Variable (Priscilla Medina RN) Patient Position/Activity: Peanut Ball; Right Extreme (Priscilla Medina RN)
--- NOTE | 2016-10-29 17:56 | L&D Progress Notes ---
PROGRESS NOTES Datetime Report Generated by CPN: 10/29/2016 17:56 PROGRESS NOTE Impression: Gest. HTN/PreEclampsia/Eclampsia Procedures: Intrauterine Pressure Catheter Plan: Continue Present Management Informed Consent Obtained: Vaginal Delivery; Risks, Benefits and Alternatives Discussed Comment: update IUPC in place FHTs 140s and reactive no cervical change MVUs 180-200 pitocin at 16 milliunits/ min continue present management vaginal delivery guarded VAGINAL EXAM Dilatation: 3 Effacement: 90 Station: -1 MEMBRANES Membranes: Ruptured Amniotic Fluid Color: Clear FETUS A FHR - Baseline: 140 Monitoring: External US Variability: Moderate 6-25bpm Accelerations: 15X15 FETUS C SIGNATURE: [id number] Assignment: Rosa Stewart MD Signature: with User ID: [email or web address] : with User ID: [email or web address]
--- NOTE | 2016-10-29 18:00 | L&D Flow Sheet ---
LD Flowsheet Datetime Report Generated by CPN: 10/29/2016 18:00 Datetime: 10/29/2016 17:51 Patient Position/Activity: Left Extreme; Peanut Ball (Priscilla Medina RN) Datetime: 10/29/2016 17:49 Dilatation (cm): 3.0 (Priscilla Medina RN) Effacement (%): 90 (Priscilla Medina RN) Station: -1 (Priscilla Medina RN) Exam by: Tracy Strong CNM (Priscilla Medina RN) Datetime: 10/29/2016 17:48 NBP Sys/Jackie/Mean (mmHg): 139 (QS system process) : 85 (QS system process) : 108 (QS system process) Pulse: 127 (QS system process) LaborFlag: Labor (QS system process) Datetime: 10/29/2016 17:43 Respirations: 16 (Priscilla Medina RN) Temperature (F): 98.2 (Priscilla Medina RN) Temperature (C): 36.8 (QS system process) Pain Presence: None/Denies (Priscilla Medina RN) Pain Coping: Talking Through Contractions (Priscilla Medina RN) LaborFlag: Labor (QS system process) Datetime: 10/29/2016 17:40 Antibiotics: Penicillin IV (Units) @ 2.5 million (Priscilla Medina, RN) Datetime: 10/29/2016 17:34 NBP Sys/Jackie/Mean (mmHg): 168 (QS system process) : 84 (QS system process) : 116 (QS system process) Pulse: 106 (QS system process) LaborFlag: Labor (QS system process) Datetime: 10/29/2016 17:20 NBP Sys/Jackie/Mean (mmHg): 172 (QS system process) : 85 (QS system process) : 117 (QS system process) Pulse: 100 (QS system process) LaborFlag: Labor (QS system process) Datetime: 10/29/2016 17:15 Monitor Mode: Internal (Priscilla Medina RN) Frequency (min): 1-3 (Priscilla Medina RN) Quality: Mild/Moderate (Priscilla Medina RN) Duration (sec): 50-70 (Priscilla Medina RN) Resting Tone (Palpate): Relaxed (Priscilla Medina RN) Monitor Mode: External US (Priscilla Medina RN) FHR Baseline Rate : 135 (Priscilla Medina RN) Variability: Moderate 6-25 bpm (Priscilla Medina RN) Accelerations: 15X15 (Priscilla Medina RN) Decelerations: None (Priscilla Medina RN) Pitocin (milliunit): Pitocin Remains (milliunits) @ 16 (Priscilla Medina RN) Datetime: 10/29/2016 17:04 NBP Sys/Jackie/Mean (mmHg): 142 (QS system process) : 89 (QS system process) : 111 (QS system process) Pulse: 104 (QS system process) LaborFlag: Labor (QS system process) Datetime: 10/29/2016 17:00 Monitor Mode: Internal (Priscilla Medina, RN) Frequency (min): 1-3 (Priscilla Medina RN) Quality: Mild/Moderate (Priscilla Medina RN) Duration (sec): 50-70 (Priscilla Medina RN) Resting Tone (Palpate): Relaxed (Priscilla Medina, RN) Resting Tone IUP (mmHg): 20 (Priscilla Medina, RN) Intensity IUP (mmHg): 57 (Priscilla Medina, RN) Contraction Comments: MVU 230 (Priscilla Medina RN) Monitor Mode: External US (Priscilla Medina RN) FHR Baseline Rate : 135 (Priscilla Medina, RN) Variability: Moderate 6-25 bpm (Priscilla Medina, RN) Accelerations: 15X15 (Priscilla Medina RN) Decelerations: None (Priscilla Medina, RN) Pitocin (milliunit): Pitocin Remains (milliunits) @ 16 (Priscilla Medina RN) Datetime: 10/29/2016 16:54 Patient Position/Activity: Right Lateral (Priscilla Meidna, RN) Datetime: 10/29/2016 16:48 NBP Sys/Jackie/Mean (mmHg): 155 (QS system process) : 90 (QS system process) : 115 (QS system process) Pulse: 90 (QS system process) LaborFlag: Labor (QS system process) Datetime: 10/29/2016 16:45 Monitor Mode: External (Priscilla Medina RN) Frequency (min): 2-450-70 (Priscilla Medina RN) Quality: Mild/Moderate (Priscilla Medina RN) Resting Tone (Palpate): Relaxed (Priscilla Medina RN) Monitor Mode: External US (Priscilla Medina RN) FHR Baseline Rate : 135 (Priscilla Medina RN) Variability: Moderate 6-25 bpm (Priscilla Medina RN) Accelerations: 15X15 (Priscilla Medina RN) Decelerations: None (Priscilla Medina RN) Pitocin (milliunit): Pitocin Remains (milliunits) @ 16 (Priscilla Medina RN) Datetime: 10/29/2016 16:34 NBP Sys/Jackie/Mean (mmHg): 147 (QS system process) : 82 (QS system process) : 108 (QS system process) Pulse: 78 (QS system process) LaborFlag: Labor (QS system process) Datetime: 10/29/2016 16:30 Monitor Mode: External (Priscilla Medina RN) Frequency (min): 1-3 (Priscilla Medina RN) Quality: Mild/Moderate (Priscilla Medina RN) Duration (sec): 50-70 (Priscilla Medina RN) Resting Tone (Palpate): Relaxed (Priscilla Medina RN) Monitor Mode: External US (Priscilla Medina RN) FHR Baseline Rate : 135 (Priscilla Medina RN) Variability: Moderate 6-25 bpm (Priscilla Medina RN) Accelerations: 15X15 (Priscilla Medina, RN) Decelerations: None (Priscilla Medina, RN) Pitocin (milliunit): Pitocin Remains (milliunits) @ 16 (Priscilla Medina RN) Datetime: 10/29/2016 16:19 NBP Sys/Jackie/Mean (mmHg): 145 (QS system process) : 87 (QS system process) : 110 (QS system process) Pulse: 76 (QS system process) LaborFlag: Labor (QS system process) Datetime: 10/29/2016 16:15 Monitor Mode: External (Priscilla Medina RN) Frequency (min): 1.5-3.5 (Priscilla Medina RN) Quality: Mild/Moderate (Priscilla Medina RN) Duration (sec): 50-70 (Priscilla Medina RN) Resting Tone (Palpate): Relaxed (Priscilla Medina RN) Monitor Mode: External US (Priscilla Medina RN) FHR Baseline Rate : 135 (Priscilla Medina RN) Variability: Moderate 6-25 bpm (Priscilla Medina RN) Accelerations: 10X10 (Priscilla Medina RN) Decelerations: None (Priscilla Medina RN) Pitocin (milliunit): Pitocin Remains (milliunits) @ 16 (Priscilla Medina RN) Datetime: 10/29/2016 16:03 NBP Sys/Jackie/Mean (mmHg): 138 (QS system process) : 78 (QS system process) : 101 (QS system process) Pulse: 95 (QS system process) LaborFlag: Labor (QS system process) Datetime: 10/29/2016 16:02 NBP Sys/Jackie/Mean (mmHg): 137 (QS system process) : 78 (QS system process) : 101 (QS system process) Pulse: 86 (QS system process) LaborFlag: Labor (QS system process) Datetime: 10/29/2016 16:01 Communication Comments: Orders to leave Pitocin where it is per A. Emmel CNM (Priscilla Medina, RN) Datetime: 10/29/2016 16:00 Monitor Mode: Internal (Priscilla Medina RN) Frequency (min): 1.5-2 (Priscilla Medina RN) Quality: Mild/Moderate (Priscilla Medina RN) Duration (sec): 50-70 (Priscilla Medina RN) Resting Tone (Palpate): Relaxed (Priscilla Medina RN) Resting Tone IUP (mmHg): 25 (Priscilla Medina RN) Intensity IUP (mmHg): 50 (Priscilla Medina RN) Contraction Comments: MVU 205 (Priscilla Medina RN) Monitor Mode: External US (Priscilla Medina RN) FHR Baseline Rate : 135 (Priscilla Medina RN) Variability: Moderate 6-25 bpm (Priscilla Medina RN) Accelerations: 15X15 (Priscilla Medina RN) Decelerations: Variable (Priscilla Medina RN)
--- NOTE | 2016-10-29 20:00 | L&D Flow Sheet ---
LD Flowsheet Datetime Report Generated by CPN: 10/29/2016 20:00 Datetime: 10/29/2016 19:54 Level of Consciousness: Fully Conscious ([facility], RN) DTR's/Clonus: DTRs 1+; No Clonus ([facility], RN) Headache: Denies ([facility], RN) Breath Sounds, Left: Clear and Equal ([facility], RN) Breath Sounds, Right: Clear and Equal ([facility], RN) Nausea/Vomiting: Denies ([facility], RN) RUQ Epigastric Pain: Denies ([facility], ) Pitocin (milliunit): Pitocin Remains (milliunits) @ (Annotations: 18) ([facility], ) Datetime: 10/29/2016 19:50 NBP Sys/Jackie/Mean (mmHg): 130 (QS system process) : 72 (QS system process) : 95 (QS system process) Pulse: 96 (QS system process) LaborFlag: Labor (QS system process) Datetime: 10/29/2016 19:35 NBP Sys/Jackie/Mean (mmHg): 143 (QS system process) : 74 (QS system process) : 99 (QS system process) Pulse: 92 (QS system process) LaborFlag: Labor (QS system process) Datetime: 10/29/2016 19:19 NBP Sys/Jackie/Mean (mmHg): 129 (QS system process) : 73 (QS system process) : 95 (QS system process) Pulse: 95 (QS system process) LaborFlag: Labor (QS system process) Datetime: 10/29/2016 19:14 Communication Comments: report given to J. Field RN (Priscilla Medina, RN) Datetime: 10/29/2016 19:05 NBP Sys/Jackie/Mean (mmHg): 126 (QS system process) : 73 (QS system process) : 95 (QS system process) Pulse: 90 (QS system process) LaborFlag: Labor (QS system process) Datetime: 10/29/2016 19:00 Monitor Mode: Internal (Priscilla Medina, RN) Frequency (min): 2-3 (Priscilla Medina RN) Quality: Mild/Moderate (Priscilla Medina RN) Duration (sec): 50-80 (Priscilla Medina RN) Resting Tone (Palpate): Relaxed (Priscilla Medina RN) Monitor Mode: External US (Priscilla Medina RN) FHR Baseline Rate : 140 (Priscilla Medina RN) Variability: Moderate 6-25 bpm (Priscilla Medina RN) Accelerations: 15X15 (Priscilla Medina RN) Decelerations: None (Priscilla Medina RN) Pitocin (milliunit): Pitocin Remains (milliunits) @ 18 (Priscilla Medina RN) Datetime: 10/29/2016 18:49 NBP Sys/Jackie/Mean (mmHg): 135 (QS system process) : 71 (QS system process) : 96 (QS system process) Pulse: 90 (QS system process) LaborFlag: Labor (QS system process) Datetime: 10/29/2016 18:45 Monitor Mode: Internal (Priscilla Medina RN) Frequency (min): 2-2.5 (Priscilla Medina RN) Quality: Mild/Moderate (Priscilla Medina RN) Duration (sec): 50-80 (Priscilla Medina RN) Resting Tone (Palpate): Relaxed (Priscilla Medina RN) Monitor Mode: External US (Priscilla Medina RN) FHR Baseline Rate : 145 (Priscilla Medina RN) Variability: Moderate 6-25 bpm (Priscilla Medina RN) Accelerations: None (Priscilla Medina RN) Decelerations: None (Priscilla Medina RN) Datetime: 10/29/2016 18:40 Resting Tone IUP (mmHg): 5 (Priscilla Medina RN) Intensity IUP (mmHg): 80 (Priscilla Medina RN) Contraction Comments: MVU 320 (Priscilla Medina RN) Monitor Interventions for FHR: Ultrasound Adjusted (Priscilla Medina RN) Datetime: 10/29/2016 18:30 Monitor Mode: Internal (Priscilla Medina RN) Frequency (min): 2-4 (Priscilla Medina RN) Quality: Mild/Moderate (Priscilla Medina RN) Duration (sec): 50-80 (Priscilla Medina, RN) Resting Tone (Palpate): Relaxed (Priscilla Medina, RN) Monitor Mode: External US (Priscilla Medina, RN) FHR Baseline Rate : 145 (Priscilla Medina, RN) Variability: Moderate 6-25 bpm (Priscilla Medina, RN) Accelerations: None (Priscilla Medina, RN) Decelerations: None (Priscilla Medina, RN) Datetime: 10/29/2016 18:15 Monitor Mode: Internal (Priscilla Medina, RN) Frequency (min): 2-4 (Priscilla Medina, RN) Quality: Mild/Moderate (Priscilla Medina, RN) Duration (sec): 50-70 (Priscilla Medina, RN) Resting Tone (Palpate): Relaxed (Priscilla Medina, RN) Monitor Mode: External US (Priscilla Medina, RN) FHR Baseline Rate : 145 (Priscilla Medina, RN) Variability: Minimal - Undetectable to <=5 bpm (Priscilla Medina, RN) Accelerations: None (Priscilla Medina, RN) Decelerations: None (Priscilla Medina, RN) Datetime: 10/29/2016 18:00 Monitor Mode: External (Priscilla Medina, RN) Frequency (min): 2-3 (Priscilla Medina RN) Quality: Mild/Moderate (Priscilla Medina, RN) Duration (sec): 50-70 (Priscilla Medina, RN) Resting Tone (Palpate): Relaxed (Priscilla Medina RN) Resting Tone IUP (mmHg): 20 (Priscilla Medina, RN) Intensity IUP (mmHg): 53 (Priscilla Medina, RN) Contraction Comments: MVU 215 (Priscilla Medina, RN) Monitor Mode: External US (Priscilla Medina RN) FHR Baseline Rate : 140 (Priscilla Medina, RN) Variability: Moderate 6-25 bpm (Priscilla Medina, RN) Accelerations: 15X15 (Priscilla Medina, RN) Decelerations: None (Priscilla Medina, RN) Comments: unable to determine, attempting to readjust monitors (Priscilla Medina, RN) Pitocin (milliunit): Pitocin Increased to (milliunits) @ 18 (Priscilla Medina, RN)
--- NOTE | 2016-10-29 22:00 | L&D Flow Sheet ---
LD Flowsheet Datetime Report Generated by CPN: 10/29/2016 22:00 Datetime: 10/29/2016 21:55 Antibiotics: Penicillin IV (Units) @ 2,500,000 (Gina Field, RN) Datetime: 10/29/2016 21:49 NBP Sys/Jackie/Mean (mmHg): 146 (QS system process) : 87 (QS system process) : 111 (QS system process) Pulse: 95 (QS system process) LaborFlag: Labor (QS system process) Datetime: 10/29/2016 21:41 Anesthesia Comments: Dr. [place] at bedside to change epidural bag (Gina Field, RN) Datetime: 10/29/2016 21:33 NBP Sys/Jackie/Mean (mmHg): 151 (QS system process) : 89 (QS system process) : 115 (QS system process) Pulse: 97 (QS system process) LaborFlag: Labor (QS system process) Datetime: 10/29/2016 21:18 NBP Sys/Jackie/Mean (mmHg): 150 (QS system process) : 93 (QS system process) : 116 (QS system process) Pulse: 99 (QS system process) LaborFlag: Labor (QS system process) Datetime: 10/29/2016 21:03 NBP Sys/Jackie/Mean (mmHg): 146 (QS system process) : 92 (QS system process) : 115 (QS system process) Pulse: 100 (QS system process) LaborFlag: Labor (QS system process) Datetime: 10/29/2016 20:55 I/O Interventions: Popsicle (Gina Field, RN) Datetime: 10/29/2016 20:48 NBP Sys/Jackie/Mean (mmHg): 151 (QS system process) : 92 (QS system process) : 116 (QS system process) Pulse: 99 (QS system process) LaborFlag: Labor (QS system process) Datetime: 10/29/2016 20:39 Patient Position/Activity: Tailors (Gina Carver RN) Datetime: 10/29/2016 20:36 Dilatation (cm): 4.5 (Gina Carver RN) Effacement (%): 90 (Gina Carver RN) Station: -1 (Gina Carver RN) Exam by: VIRY Landry (Gina Carver RN) Datetime: 10/29/2016 20:35 NBP Sys/Jackie/Mean (mmHg): 143 (QS system process) : 89 (QS system process) : 111 (QS system process) Pulse: 97 (QS system process) LaborFlag: Labor (QS system process) Datetime: 10/29/2016 20:20 NBP Sys/Jackie/Mean (mmHg): 137 (QS system process) : 82 (QS system process) : 104 (QS system process) Pulse: 102 (QS system process) LaborFlag: Labor (QS system process) Datetime: 10/29/2016 20:04 NBP Sys/Jackie/Mean (mmHg): 132 (QS system process) : 78 (QS system process) : 99 (QS system process) Pulse: 94 (QS system process) LaborFlag: Labor (QS system process) Datetime: 10/29/2016 20:00 Monitor Mode: Internal; Palpation (Gina Carver RN) Frequency (min): 3-5 (Gina Carver RN) Quality: Mild/Moderate (Gina Carver RN) Duration (sec): 60-100 (Gina Carver RN) Resting Tone (Palpate): Relaxed (Gina Carver RN) Contraction Comments: MVU 225 (Gina Carver RN) Monitor Mode: External US (Gina Carver RN) FHR Baseline Rate : 130 (Gina Carver RN) Variability: Moderate 6-25 bpm (Gina Carver RN) Accelerations: 10X10 (Gina Carver RN) Decelerations: Variable (Gina Carver RN) Pitocin (milliunit): Pitocin Remains (milliunits) @ 18 (Gina Carver RN)
[2016-10-29] MEDS ORDERED: OXYTOCIN 10 UNIT/ML VIAL ONE (23:28)
[2016-10-29] MEDS ORDERED: MIDAZOLAM 2 MG/2 ML INJ ONE (23:28)
[2016-10-29] MEDS ORDERED: LIDOCAINE 2%/EPINEPHRINE INJ 20 ML VIAL ONE (23:29)
[2016-10-29] MEDS ORDERED: CITRIC ACID/SODIUM CITRATE ORAL SOLN 15 ML UDCUP ONE (23:31)
[2016-10-29] MEDS ORDERED: CEFAZOLIN 2 GM/D5W RTU 2 GM/50 ML RTUPB IV ONE (23:32)
[2016-10-30] MEDS ORDERED: PROMETHAZINE HCL INJ 25 MG/1 ML VIAL ONE (00:31)
[2016-10-30] MEDS ORDERED: ACETAMINOPHEN 100 ML IV ONE (00:57)
[2016-10-30] MEDS ORDERED: MORPHINE SULFATE 10 MG/ML INJ IV PRN (01:10)
[2016-10-30] MEDS ORDERED: FENTANYL CITRATE INJ/PF 100 MCG/2 ML AMPUL IV PRN ×3 (01:10)
[2016-10-30] MEDS ORDERED: DIPHENHYDRAMINE HCL 50 MG/ML VIAL IV PRN (01:10)
[2016-10-30] MEDS ORDERED: PROMETHAZINE HCL INJ 25 MG/1 ML VIAL IV PRN ×3 (01:10→02:38)
--- NOTE | 2016-10-30 01:27 | Delivery Summary ---
Del Sum A-C Datetime Report Generated by CPN: 10/30/2016 01:27 ADMISSION DATA Indication for Induction: Gest. HTN/PreEclampsia/Eclampsia Admission Impression: Term, Intrauterine Admit Provider Comments: 26 yo admitted for induction of labor- gestational hypertension EDC 10/28/16 EGA 40.1 PHx- GBS positive abdomen nontender FHTs +accelerations ctxs- 4-5 minutes cervix /-2 midposition and soft vitals signs 138-166/86-99 denies headache/ blurred vision/ no ruq pain admit gbs prophylaxis PIH labs pain management prn pitocin per protocol DELIVERY PERSONNEL Delivery Doctor:: Rosa Stewart MD Anesthesiologist:: Comfort Almeida MD PIN TICKET MACHINE OPERATOR:: Ivette Valencia CRNA Labor and Delivery Nurse:: Gina Carver RN Neonatal Nurse Practitioner:: YONATAN Tabares Nursery Nurse:: Priscilla Clark RN Voice Studies Director/SURVEYING CREW RODMAN: Bety Brock CST Voice Studies Director/SURVEYING CREW RODMAN: [facility] Additional Personnel: : Rachel Rhodes CNA MATERNAL INFORMATION Delivery Anesthesia: Epidural Medications After Delivery: Pitocin Drip 20 Units/1000ml NSS Meds After Delivery Comment: Ofirmev 1000 mg IV Estimated Blood Loss (ml): 600 Maternal Complications: None Provider Comments: Primary LTCS for failure to progress. live female infant ap 8/9. spontaneous intact placenta 3vc. no complications LABOR SUMMARY EDC: 10/28/2016 00:00 No. Babies in Womb: 1 Attempted: No Labor Anesthesia: Epidural LABOR INFORMATION Reason for Induction: Gestational Hypertension Onset of Labor: 10/29/2016 13:21 Oxytocin: Induction Group B Beta Strep: Positive Antibiotics # of Doses: 4 Antibiotics Time of Last Dose: 2154 Name of Antibiotic Given: PCN Steroids Given: None Reason Steroids Not Administered: Not Applicable MEMBRANES Membranes Rupture Method: Artificial Rupture of Membranes: 10/29/2016 13:21 Length of Rupture (hr): 10.92 Amniotic Fluid Color: Moderate Meconium Amniotic Fluid Amount: Moderate Amniotic Fluid Odor: Normal STAGES OF LABOR Stage 3 hr: 0 Stage 3 min: 1 Total Time in Labor hr: 10 Total Time in Labor min: 56 VAGINAL DELIVERY Episiotomy: None Laceration Extension: N/A Laceration Type: None Laceration Repair: Not Applicable Sponge Count Correct: N/A Sharps Count Correct: N/A CSECTION DELIVERY Primary Indication: Secondary Arrest of Dilatation CSection Urgency: Non-Scheduled CSection Incidence: Primary Labor: Labor Elective: Nonelective CSection Incision: Lower Uterine Transverse Uterine Closure: Double-layer closure BABY A INFORMATION Delivery Date/Time: 10/30/2016 00:16 Method of Delivery: Born in Route : No : N/A Forceps: N/A Vacuum Extraction: N/A Shoulder Dystocia : No PRESENTATION/POSITION BABY A Presentation: Cephalic Cephalic Presentation: Vertex Breech Presentation: N/A PLACENTA INFORMATION BABY A Placenta Delivery Time : 10/30/2016 00:17 Placenta Method of Delivery: Manual Removal Placenta Status: Delivered SCORES BABY A Heart Rate 1 min: >100 bpm Resp Effort 1 min: Good Cry Reflex Irritability 1 min: Cough or Sneeze or Pulls Away Muscle Tone 1 min: Active Motion Color 1 min: Blue/Pale Resuscitation Effort 1 min: Tactile Stimulation SCORE 1 MIN: 8 Heart Rate 5 min: >100 bpm Resp Effort 5 min: Good Cry Reflex Irritability 5 min: Cough or Sneeze or Pulls Away Muscle Tone 5 min: Active Motion Color 5 min: Body Gattman, Extremities Blue Resuscitation Effort 5 min: Tactile Stimulation SCORE 5 MIN: 9 INFANT INFORMATION BABY A Gestational Age at Delivery: 40.1 Gestational Status: Full Term- 39- 40.6 Weeks Infant Outcome : Liveborn Infant Condition : Stable Infant Sex: Female IDENTIFICATION BABY A Verification Date/Time: 10/30/2016 00:21 ID Band Number: [id number] Mother's Name Verified: Yes Infant RN Verifying : Margarita VIRY Hairston Additional Verifying Personnel: Tracy Rhodes CNA WEIGHT/LENGTH BABY A Infant Birthweight (gm): 3340 Weight (lb): 7 Weight (oz): 6 Length (in): 21.00 Infant Length (cm): 53.34 CORD INFORMATION BABY A No. Cord Vessels: 3 Nuchal Cord : N/A Cord Blood Taken: Yes-For Storage (Mom's Blood type +) Infant Suction: Mouth; Nose ASSESSMENT BABY A Infant Complications: Meconium Physical Findings at Delivery: Within Normal Limits Respirations: Appears Normal Skin to Skin: No Infant Care By: VIRY Bailey Transferred To: [facility] BABY B INFORMATION : N/A SIGNATURES Signature: with User ID: [email or web address]
[2016-10-30] MEDS ORDERED: MISOPROSTOL 0.2 MG TABLET ONE (01:46)
[2016-10-30] MEDS ORDERED: MEASLES,MUMPS&RUBELLA VACC/PF 0.5 ML VIAL SUBCUT PRN (02:38)
[2016-10-30] MEDS ORDERED: ACETAMINOPHEN 325 MG TABLET PO PRN (02:38)
[2016-10-30] MEDS ORDERED: DIPH/PERTUSS(ACELL)/TETANUS VAC/PF 0.5 ML SYR (>=10YO) IM PRN (02:38)
[2016-10-30] MEDS ORDERED: HYDROMORPHONE HCL INJ/PF 2 MG/ML AMPULE IV PRN (02:38)
[2016-10-30] MEDS ORDERED: ACETAMINOPHEN 100 ML IV PRN (02:38)
[2016-10-30] MEDS ORDERED: SIMETHICONE 80 MG TAB.CHEW PO PRN (02:38)
[2016-10-30] MEDS ORDERED: OXYTOCIN/NORMAL SALINE 1,000 ML IV PRN (02:38)
[2016-10-30] MEDS ORDERED: OXYCODONE-ACETAMINOPHEN 5-325 MG TABLET PO PRN (02:38)
--- NOTE | 2016-10-30 02:46 | Admission Physical ---
Datetime Report Generated by CPN: 10/30/2016 02:45 CURRENT ADMISSION Indication for Induction: Gest. HTN/PreEclampsia/Eclampsia Admit Plan: Admit to Unit; Initiate Labor Induction Protocol ALLERGIES Medication Allergies: No Medication Allergies: No Known Allergies (09/19/2016) Latex: No Latex Allergies Food Allergies: N/A Environmental Allergies: N/A OBSTETRICAL HISTORY EDC: 10/28/2016 00:00 : 4 Para: 0 Term: 0 : 0 SAB: 1 IAB: 2 Ectopic: 0 Livin Cesareans: 0 VBACs: 0 Multiple Births: 0 Gestational Diabetes: No Rh Sensitization: No Incompetent Cervix: No NBA: No Infertility: No ART Treatment: No Uterine Anomaly: No IUGR: No Hx Previous C/S: No Macrosomia: No Hx Loss/Stillborn: No PIH: No Hx : No Placenta Previa/Abruption: No Depression/PP Depression: No PTL/PROM: No Post Hemorrhage: No Current Procedures: Ultrasound Obstetrical History Comments: 10/2006 EAB G210/2011 SAB 10/2015 EAB G4-Current SEE RECORDS Alcohol: No Marijuana : No Cocaine: No Other Illicit Drugs: No Cigarettes: Never Smoker. 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 Surgery: No Heart Disease: No Hosp/Surgery: Yes Autoimmune Disorder: No Anesthetic Complications: No Kidney Disease: No Abnormal Pap Smear: No Neuro/Epilepsy: No Psychiatric Disorders: No Other Medical Diseases: No Hepatitis/Liver Disease: No Significant Family History: No Varicosities/Phlebitis: No Trauma/Violence : No Thyroid Dysfunction: No Medical History Comments: Tonsilectomy INFECTIOUS HISTORY Genital Herpes: No Chlamydia: Yes Tuberculosis: No Syphilis: No Hepatitis: No HIV/AIDS Exposure: No Rash or Viral Illness: No HPV: No Infectious History Comments: Chlamydia - 2008 PHYSICAL EXAM General: Normal HEENT: Normal Neurologic: Normal Thyroid: Normal Heart: Normal Lungs: Normal Breast: Normal Back: Normal Abdomen: Normal Genitourinary Exam: Normal Extremities: Normal DTRs: Normal Pelvic Type: Adequate VAGINAL EXAM Dilatation: 3 Effacement: 90 Station: -1 MEMBRANES Membranes: Ruptured Amniotic Fluid Color: Clear FETUS A Monitoring: External US FHR- Baseline: 120 Decelerations: None FHR Category: Category I Presentation: Vertex Admit Comment: 26 yo admitted for induction of labor- gestational hypertension EDC 10/28/16 EGA 40.1 PHx- GBS positive abdomen nontender FHTs +accelerations ctxs- 4-5 minutes cervix 1/70/-2 midposition and soft vitals signs 138-166/86-99 denies headache/ blurred vision/ no ruq pain admit gbs prophylaxis PIH labs pain management prn pitocin per protocol PLANS FOR LABOR AND DELIVERY Labor and Delivery: None Feeding Preference: Both Benefit of Breast Feed Discussed: Yes Circumcision: N/A INFORMED CONSENT Informed Consent Obtained: Vaginal Delivery; Risks, Benefits and Alternatives Discussed Assignment: Rosa Stewart MD Signature: with User ID: [email or web address] : with User ID: [email or web address]
[2016-10-30] MEDS: OXYCODONE-ACETAMINOPHEN 5-325 MG TABLET PO PRN ×2 (04:44→19:36)
[2016-10-30] MEDS: KETOROLAC TROMETHAMINE INJ/PF 30 MG/1 ML SDV IV SCH ×3 (06:00→21:24)
--- NOTE | 2016-10-30 07:00 | L&D Flow Sheet ---
LD Flowsheet Datetime Report Generated by CPN: 10/30/2016 07:00 Datetime: 10/30/2016 02:40 Pulse: 87 (QS system process) SpO2 (%): 99 (QS system process) Datetime: 10/30/2016 02:35 Pulse: 76 (QS system process) SpO2 (%): 99 (QS system process) Datetime: 10/30/2016 02:30 Stage of : Recovery (Gina Field, RN) NBP Sys/Jackie/Mean (mmHg): 140 (QS system process) : 83 (QS system process) : 106 (QS system process) Pulse: 73 (QS system process) Pulse: 71 (QS system process) SpO2 (%): 99 (QS system process) Datetime: 10/30/2016 02:25 Pulse: 76 (QS system process) SpO2 (%): 98 (QS system process) Datetime: 10/30/2016 02:20 Pulse: 80 (QS system process) SpO2 (%): 99 (QS system process) Datetime: 10/30/2016 02:15 Stage of : Recovery (Gina Field, RN) NBP Sys/Jackie/Mean (mmHg): 143 (QS system process) : 66 (QS system process) : 95 (QS system process) Pulse: 83 (QS system process) Pulse: 71 (QS system process) SpO2 (%): 98 (QS system process) Datetime: 10/30/2016 02:10 Pulse: 78 (QS system process) SpO2 (%): 99 (QS system process) Datetime: 10/30/2016 02:05 Pulse: 71 (QS system process) SpO2 (%): 100 (QS system process) Datetime: 10/30/2016 02:00 Stage of : Recovery (Gina Field, RN) NBP Sys/Jackie/Mean (mmHg): 132 (QS system process) : 68 (QS system process) : 93 (QS system process) Pulse: 70 (QS system process) Pulse: 65 (QS system process) SpO2 (%): 100 (QS system process) Datetime: 10/30/2016 01:55 Pulse: 76 (QS system process) SpO2 (%): 100 (QS system process) Datetime: 10/30/2016 01:50 Pulse: 72 (QS system process) SpO2 (%): 100 (QS system process) Datetime: 10/30/2016 01:45 Stage of : Recovery (Gina Field, RN) NBP Sys/Jackie/Mean (mmHg): 137 (QS system process) : 70 (QS system process) : 97 (QS system process) Pulse: 83 (QS system process) Datetime: 10/30/2016 01:44 Pulse: 79 (QS system process) SpO2 (%): 100 (QS system process) Datetime: 10/30/2016 01:39 Pulse: 111 (QS system process) SpO2 (%): 100 (QS system process) Datetime: 10/30/2016 01:34 Pulse: 80 (QS system process) SpO2 (%): 100 (QS system process) Datetime: 10/30/2016 01:30 Stage of : Recovery (Gina Field, RN) NBP Sys/Jackie/Mean (mmHg): 141 (QS system process) : 73 (QS system process) : 98 (QS system process) Pulse: 93 (QS system process) Datetime: 10/30/2016 01:29 Pulse: 82 (QS system process) SpO2 (%): 100 (QS system process) Datetime: 10/30/2016 01:24 Pulse: 88 (QS system process) SpO2 (%): 100 (QS system process) Datetime: 10/30/2016 01:21 NBP Sys/Jackie/Mean (mmHg): 133 (QS system process) : 69 (QS system process) : 94 (QS system process) Pulse: 86 (QS system process) Datetime: 10/30/2016 01:19 Pulse: 89 (QS system process) SpO2 (%): 100 (QS system process) Datetime: 10/30/2016 01:15 Stage of : Recovery (Gina Field, RN) Datetime: 10/30/2016 01:14 Pulse: 93 (QS system process) SpO2 (%): 100 (QS system process) Datetime: 10/30/2016 01:09 Pulse: 112 (QS system process) SpO2 (%): 100 (QS system process) Datetime: 10/30/2016 01:04 Pulse: 92 (QS system process) SpO2 (%): 100 (QS system process) Datetime: 10/30/2016 01:00 Stage of : Recovery (Gina Field, RN) Datetime: 10/30/2016 00:59 Pulse: 90 (QS system process) SpO2 (%): 100 (QS system process) Datetime: 10/30/2016 00:54 Pulse: 92 (QS system process) SpO2 (%): 100 (QS system process) Datetime: 10/30/2016 00:49 Pulse: 94 (QS system process) SpO2 (%): 100 (QS system process) Datetime: 10/30/2016 00:45 Stage of : Recovery (Gina Carver RN) NBP Sys/Jackie/Mean (mmHg): 99 (QS system process) : 53 (QS system process) : 72 (QS system process) Pulse: 89 (QS system process) Pulse: 97 (QS system process) SpO2 (%): 94 (QS system process) Temperature (F): 98.5 (Gina Carver RN) Temperature (C): 36.9 (QS system process) Temperature Route: Axillary (Gina Carver RN) Datetime: 10/30/2016 00:44 Pulse: 94 (QS system process) SpO2 (%): 96 (QS system process) LaborFlag: Labor (QS system process) Datetime: 10/29/2016 23:47 NBP Sys/Jackie/Mean (mmHg): 173 (QS system process) : 81 (QS system process) : 117 (QS system process) Pulse: 104 (QS system process) LaborFlag: Labor (QS system process) Datetime: 10/29/2016 23:45 Monitor Mode: Internal; Palpation (Gina Field, RN) Frequency (min): 3.5-4 (Gina Field, RN) Quality: Mild/Moderate (Gina Field, RN) Duration (sec): 70-80 (Gina Field, RN) Resting Tone (Palpate): Relaxed (Gina Field, RN) Monitor Mode: External US (Gina Field, RN) FHR Baseline Rate : 145 (Gina Field, RN) Variability: Moderate 6-25 bpm (Gina Field, RN) Accelerations: 10X10 (Gina Field, RN) Decelerations: None (Gina Field, RN) Datetime: 10/29/2016 23:35 NBP Sys/Jackie/Mean (mmHg): 169 (QS system process) : 87 (QS system process) : 118 (QS system process) Pulse: 95 (QS system process) LaborFlag: Labor (QS system process) Datetime: 10/29/2016 23:32 NBP Sys/Jackie/Mean (mmHg): 145 (QS system process) : 88 (QS system process) : 111 (QS system process) Pulse: 97 (QS system process) LaborFlag: Labor (QS system process) Datetime: 10/29/2016 23:30 Monitor Mode: Internal; Palpation (Gina Carver RN) Frequency (min): 2-4 (Gina Carver RN) Quality: Mild/Moderate (Gina Carver, RN) Duration (sec): 70-90 (Gina Carver, RN) Resting Tone (Palpate): Relaxed (Gina Carver RN) Monitor Mode: External US (Gina Carver RN) Monitor Interventions for FHR: Ultrasound Adjusted (Gina Carver RN) FHR Baseline Changes: Unable to Determine (Gina Carver, RN) Variability: Moderate 6-25 bpm (Gina Carver, RN) Datetime: 10/29/2016 23:22 Communication Comments: Spoke with Kiarra, SANDBLAST OPERATOR and informed her has been called for failure to progress. (Shoshana Lattibeaudeir, RN) Datetime: 10/29/2016 23:20 Communication Comments: Called [facility] and informed them that has been called. (Shoshana Lattibeaudeir, RN) Datetime: 10/29/2016 23:19 Communication Comments: Called [facility] and informed Vasu, FINANCIAL ANALYST ACCOUNTANT that has been called. (Shoshana Lattibeaudeir, RN) Datetime: 10/29/2016 23:18 Communication Comments: Called Cancer Genetics Assistant, Lulu, and informed her that has been called for failure to progress. (Shoshana Hairston RN) Datetime: 10/29/2016 23:15 Monitor Mode: Internal; Palpation (Gina Carver, VIRY) Frequency (min): 2-3.5 (Gina Carver, VIRY) Quality: Mild/Moderate (Gina Carver RN) Duration (sec): 60-90 (Gina Carver, RN) Resting Tone (Palpate): Relaxed (Gina Carver, RN) Monitor Interventions for FHR: Ultrasound Adjusted (Gina Carver RN) FHR Baseline Changes: Unable to Determine (Gina Carver RN) Pitocin (milliunit): Pitocin Discontinued (Gina Carver, RN) Datetime: 10/29/2016 23:08 Dilatation (cm): 4.5 (Gina Field, RN) Effacement (%): 90 (Gina , RN) [facility] Exam by: Dr. Stewart ([facility], RN) Datetime: 10/29/2016 23:04 NBP Sys/Jackie/Mean (mmHg): 167 (QS system process) : 83 (QS system process) : 114 (QS system process) Pulse: 95 (QS system process) LaborFlag: Labor (QS system process) Datetime: 10/29/2016 23:02 Pulse: 92 (QS system process) SpO2 (%): 100 (QS system process) LaborFlag: Labor (QS system process) Datetime: 10/29/2016 23:00 Monitor Mode: Internal; Palpation (Gina Carver RN) Frequency (min): 2-3 (Gina Carver RN) Quality: Mild/Moderate (Gina Carver RN) Duration (sec): 60-80 (Gina Carver RN) Resting Tone (Palpate): Relaxed (Gina Carver, VIRY) Monitor Interventions for FHR: Ultrasound Adjusted (Gina Carver RN) FHR Baseline Changes: Unable to Determine (Gina Carver RN) Pitocin (milliunit): Pitocin Remains (milliunits) @ 18 (Gina Carver, VIRY) Datetime: 10/29/2016 22:57 Pulse: 92 (QS system process) SpO2 (%): 99 (QS system process) LaborFlag: Labor (QS system process) Datetime: 10/29/2016 22:52 Pulse: 95 (QS system process) SpO2 (%): 99 (QS system process) LaborFlag: Labor (QS system process) Datetime: 10/29/2016 22:49 NBP Sys/Jackie/Mean (mmHg): 174 (QS system process) : 90 (QS system process) : 123 (QS system process) Pulse: 98 (QS system process) LaborFlag: Labor (QS system process) Datetime: 10/29/2016 22:47 Pulse: 103 (QS system process) SpO2 (%): 99 (QS system process) LaborFlag: Labor (QS system process) Datetime: 10/29/2016 22:45 Monitor Mode: Internal; Palpation (Gina Field, RN) Frequency (min): 2-3 (Gina Carver, RN) Quality: Mild/Moderate (Gina , RN) Duration (sec): 60-90 (Gina Carver, RN) Resting Tone (Palpate): Relaxed (Gina Carver, RN) Monitor Interventions for FHR: Ultrasound Adjusted (Gina Carver, RN) FHR Baseline Changes: Unable to Determine (Gina Carver, RN) Pitocin (milliunit): Pitocin Remains (milliunits) @ 18 (Gina Field, RN) Datetime: 10/29/2016 22:40 Patient Position/Activity: Hands-Knees (Gina Field, RN) Datetime: 10/29/2016 22:35 NBP Sys/Jackie/Mean (mmHg): 163 (QS system process) : 87 (QS system process) : 117 (QS system process) Pulse: 95 (QS system process) LaborFlag: Labor (QS system process) Datetime: 10/29/2016 22:30 Monitor Mode: Internal; Palpation (Gina Carver RN) Frequency (min): 2.5-4.5 (Gina Carver RN) Quality: Mild/Moderate (Gina Carver RN) Duration (sec): 70-90 (Gina Carver RN) Resting Tone (Palpate): Relaxed (Gina Cavrer RN) Monitor Interventions for FHR: Ultrasound Adjusted (Gina Carver RN) FHR Baseline Changes: Unable to Determine (Gina Carver RN) Pitocin (milliunit): Pitocin Remains (milliunits) @ 18 (Gina Carver RN) Datetime: 10/29/2016 22:18 NBP Sys/Jackie/Mean (mmHg): 153 (QS system process) : 84 (QS system process) : 111 (QS system process) Pulse: 98 (QS system process) LaborFlag: Labor (QS system process) Datetime: 10/29/2016 22:15 Monitor Mode: Internal; Palpation (Gina Carver, RN) Frequency (min): 1.5-3 (Gina , RN) Quality: Mild/Moderate (Gina Field, RN) Duration (sec): 50-90 (Gina Field, RN) Resting Tone (Palpate): Relaxed (Gina Field, RN) Monitor Mode: External US (Gina Field, RN) FHR Baseline Rate : 140 (Gina Field, RN) Variability: Moderate 6-25 bpm (Gina Field, RN) Accelerations: None (Gina Field, RN) Decelerations: Variable (Gina Field, RN) Pitocin (milliunit): Pitocin Remains (milliunits) @ 18 (Gina Field, RN) Datetime: 10/29/2016 22:05 NBP Sys/Jackie/Mean (mmHg): 150 (QS system process) : 91 (QS system process) : 114 (QS system process) Pulse: 100 (QS system process) LaborFlag: Labor (QS system process) Datetime: 10/29/2016 22:04 Communication Comments: Dr. Stewart discussed with patient and family about a ; patient asked several questions (Gina Carver, ) Datetime: 10/29/2016 22:02 Dilatation (cm): 4.5 (Gina Carver, ) Effacement (%): 90 (Gina Carver, ) Station: 0 (Gina Field ) [facility] Datetime: 10/29/2016 22:00 Monitor Mode: Internal; Palpation (Gina Carver, RN) Frequency (min): 1.5-3.5 (Gina Carver, RN) Quality: Mild/Moderate (Gina Field, RN) Duration (sec): 50-90 (Gina Field, RN) Resting Tone (Palpate): Relaxed (Ginamarlo Carver, RN) Monitor Mode: External US (Gina Carver, RN) FHR Baseline Rate : 145 (Gina Field, RN) Variability: Moderate 6-25 bpm (Gina Field, RN) Accelerations: 10X10 (Gina Field, RN) Decelerations: Variable (Ginamarlo Carver, RN) Pitocin (milliunit): Pitocin Remains (milliunits) @ 18 (Gina Carver, RN) Communication Comments: Dr. Stewart at bedside (Gina Carver, RN) Datetime: 10/29/2016 21:55 Antibiotics: Penicillin IV (Units) @ 2,500,000 (Gina Field, RN) Datetime: 10/29/2016 21:49 NBP Sys/Jackie/Mean (mmHg): 146 (QS system process) : 87 (QS system process) : 111 (QS system process) Pulse: 95 (QS system process) LaborFlag: Labor (QS system process) Datetime: 10/29/2016 21:45 Monitor Mode: Internal; Palpation (Gina Carver RN) Frequency (min): 2-3 (Gina Carver RN) Quality: Mild/Moderate (Gina Carver RN) Duration (sec): 60-90 (Gina Carver RN) Resting Tone (Palpate): Relaxed (Gina Carver RN) Monitor Interventions for FHR: Ultrasound Adjusted (Gina Carver RN) FHR Baseline Changes: Unable to Determine (Gina Carver RN) Pitocin (milliunit): Pitocin Remains (milliunits) @ 18 (Gina Carver RN) Datetime: 10/29/2016 21:41 Anesthesia Comments: Dr. Almeida at bedside to change epidural bag (Gina Field, RN) Datetime: 10/29/2016 21:33 NBP Sys/Jackie/Mean (mmHg): 151 (QS system process) : 89 (QS system process) : 115 (QS system process) Pulse: 97 (QS system process) LaborFlag: Labor (QS system process) Datetime: 10/29/2016 21:30 Monitor Mode: Internal; Palpation (Gina Carver RN) Frequency (min): 2.5-3 (Gina Carver RN) Quality: Mild/Moderate (Gina Carver RN) Duration (sec): 70-90 (Gina Carver RN) Resting Tone (Palpate): Relaxed (Gina Carver RN) Monitor Interventions for FHR: Ultrasound Adjusted (Gina Carver RN) FHR Baseline Changes: Unable to Determine (Gina Carver RN) Pitocin (milliunit): Pitocin Remains (milliunits) @ 18 (Gina Carver RN) Datetime: 10/29/2016 21:18 NBP Sys/Jackie/Mean (mmHg): 150 (QS system process) : 93 (QS system process) : 116 (QS system process) Pulse: 99 (QS system process) LaborFlag: Labor (QS system process) Datetime: 10/29/2016 21:15 Monitor Mode: Internal; Palpation (Gina Carver, RN) Frequency (min): 2-3 (Gina Carver, RN) Quality: Mild/Moderate (Gina Carver, RN) Duration (sec): 60-90 (Gina Carver, RN) Resting Tone (Palpate): Relaxed (Gina Carver, RN) Monitor Mode: External US (Gina Carver, RN) FHR Baseline Rate : 140 (Gina Carver, RN) Variability: Moderate 6-25 bpm (Gina Carver, RN) Accelerations: None (Gina Carver, RN) Decelerations: Variable (Gina Carver, RN) Pitocin (milliunit): Pitocin Remains (milliunits) @ 18 (Gina Carver, RN) Datetime: 10/29/2016 21:03 NBP Sys/Jackie/Mean (mmHg): 146 (QS system process) : 92 (QS system process) : 115 (QS system process) Pulse: 100 (QS system process) LaborFlag: Labor (QS system process) Datetime: 10/29/2016 21:00 Monitor Mode: Internal; Palpation (Gina Carver RN) Frequency (min): 1.5-3.5 (Gina Carver, RN) Quality: Mild/Moderate (Gina Carver, RN) Duration (sec): 60-90 (Gina Carver RN) Resting Tone (Palpate): Relaxed (Gina Carver, RN) Monitor Mode: External US (Gina Carver, RN) FHR Baseline Rate : 140 (Gina Carver, RN) Variability: Moderate 6-25 bpm (Gina Carver, RN) Accelerations: 10X10 (Gina Carver, RN) Decelerations: Variable (Gina Carver RN) Pitocin (milliunit): Pitocin Remains (milliunits) @ 18 (Gina Carver, RN) Datetime: 10/29/2016 20:55 I/O Interventions: Popsicle (Gina Carver, RN) Datetime: 10/29/2016 20:48 NBP Sys/Jackie/Mean (mmHg): 151 (QS system process) : 92 (QS system process) : 116 (QS system process) Pulse: 99 (QS system process) LaborFlag: Labor (QS system process) Datetime: 10/29/2016 20:45 Monitor Mode: Internal; Palpation (Gina Carver RN) Frequency (min): 2-2.5 (Gina Carver RN) Quality: Mild/Moderate (Gina Carver RN) Duration (sec): 60-90 (Gina Carver RN) Resting Tone (Palpate): Relaxed (Gina Carver RN) Monitor Interventions for FHR: Ultrasound Adjusted (Gina Carver RN) FHR Baseline Changes: Unable to Determine (Gina Carver RN) Pitocin (milliunit): Pitocin Remains (milliunits) @ 18 (Gina Carver RN) Datetime: 10/29/2016 20:39 Patient Position/Activity: Tailors (Gina Carver, VIRY) Datetime: 10/29/2016 20:36 Dilatation (cm): 4.5 (Gina Carver RN) Effacement (%): 90 (Gina Carver RN) Station: -1 (Gina Carver RN) Exam by: VIRY Landry (Gina Carver RN) Datetime: 10/29/2016 20:35 NBP Sys/Jackie/Mean (mmHg): 143 (QS system process) : 89 (QS system process) : 111 (QS system process) Pulse: 97 (QS system process) LaborFlag: Labor (QS system process) Datetime: 10/29/2016 20:30 Monitor Mode: Internal; Palpation (Gina Carver RN) Frequency (min): 1.5-3.5 (Gina Carver, RN) Quality: Mild/Moderate (Gina Carver, RN) Duration (sec): 60-90 (Gina Carver, RN) Resting Tone (Palpate): Relaxed (Gina Carver, RN) Monitor Mode: External US (Gina Carver, RN) FHR Baseline Rate : 135 (Gina Carver, RN) Variability: Moderate 6-25 bpm (Gina Carver, RN) Accelerations: 10X10 (Gina Carver, RN) Decelerations: Variable (Gina Carver, RN) Pitocin (milliunit): Pitocin Remains (milliunits) @ 18 (Gina Carver, RN) Datetime: 10/29/2016 20:20 NBP Sys/Jackie/Mean (mmHg): 137 (QS system process) : 82 (QS system process) : 104 (QS system process) Pulse: 102 (QS system process) LaborFlag: Labor (QS system process) Datetime: 10/29/2016 20:15 Monitor Mode: Internal; Palpation (Gina Carver RN) Frequency (min): 1.5-3.5 (Gina Carver, RN) Quality: Mild/Moderate (Gina Carver, RN) Duration (sec): 60-100 (Gina Carver RN) Resting Tone (Palpate): Relaxed (Gina Carver, RN) Monitor Mode: External US (Gina Carver, RN) FHR Baseline Rate : 135 (Gina Carver, RN) Variability: Moderate 6-25 bpm (Gina Carver, RN) Accelerations: 10X10 (Gina Carver, RN) Decelerations: Late; Variable (Gina Carver, RN) Pitocin (milliunit): Pitocin Remains (milliunits) @ 18 (Gina Carver, RN) Datetime: 10/29/2016 20:04 NBP Sys/Jackie/Mean (mmHg): 132 (QS system process) : 78 (QS system process) : 99 (QS system process) Pulse: 94 (QS system process) LaborFlag: Labor (QS system process) Datetime: 10/29/2016 20:00 Monitor Mode: Internal; Palpation (Gina Carver, RN) Frequency (min): 3-5 (Gina Carver, RN) Quality: Mild/Moderate (Gina Carver, RN) Duration (sec): 60-100 (Gina Carver, RN) Resting Tone (Palpate): Relaxed (Gina Carver, RN) Contraction Comments: MVU 225 (Gina Carver, RN) Monitor Mode: External US (Gina Carver, RN) FHR Baseline Rate : 130 (Gina Carver, RN) Variability: Moderate 6-25 bpm (Gina Carver, RN) Accelerations: 10X10 (Gina Carver, RN) Decelerations: Variable (Gina Carver, RN) Pitocin (milliunit): Pitocin Remains (milliunits) @ 18 (Gina Carver RN) Datetime: 10/29/2016 19:54 Level of Consciousness: Fully Conscious (Gina Field, RN) DTR's/Clonus: DTRs 1+; No Clonus (Gina Field, RN) Headache: Denies (Gina Field, RN) Breath Sounds, Left: Clear and Equal (Gina Field, RN) Breath Sounds, Right: Clear and Equal (Gina Field, RN) Nausea/Vomiting: Denies (Gina Field, RN) RUQ Epigastric Pain: Denies (Gina Field, RN) Pitocin (milliunit): Pitocin Remains (milliunits) @ (Annotations: 18) (Gina Field, RN) Datetime: 10/29/2016 19:50 NBP Sys/Jackie/Mean (mmHg): 130 (QS system process) : 72 (QS system process) : 95 (QS system process) Pulse: 96 (QS system process) LaborFlag: Labor (QS system process) Datetime: 10/29/2016 19:45 Monitor Mode: Internal; Palpation (Gina Field, RN) Frequency (min): 2-2.5 (Gina Field, RN) Quality: Mild/Moderate (Gina Field, RN) Duration (sec): 60-100 (Gina Field, RN) Resting Tone (Palpate): Relaxed (Gina Field, RN) Monitor Mode: External US (Gina Field, RN) FHR Baseline Rate : 135 (Gina Field, RN) Variability: Moderate 6-25 bpm (Gina Field, RN) Accelerations: 10X10 (Gina Field, RN) Decelerations: Variable (Gina Field, RN) Pitocin (milliunit): Pitocin Remains (milliunits) @ 18 (Gina Field, RN) Datetime: 10/29/2016 19:35 NBP Sys/Jackie/Mean (mmHg): 143 (QS system process) : 74 (QS system process) : 99 (QS system process) Pulse: 92 (QS system process) LaborFlag: Labor (QS system process) Datetime: 10/29/2016 19:30 Monitor Mode: Internal; Palpation (Gina Field, RN) Frequency (min): 2.5-4 (Gina Field, RN) Quality: Mild/Moderate (Gina Field, RN) Duration (sec): 60-100 (Gina Field, RN) Resting Tone (Palpate): Relaxed (Gina Field, RN) Monitor Mode: External US (Gina Field, RN) FHR Baseline Rate : 135 (Gina Field, RN) Variability: Moderate 6-25 bpm (Gina Field, RN) Accelerations: 10X10 (Gina Field, RN) Decelerations: Variable (Gina Field, RN) Pitocin (milliunit): Pitocin Remains (milliunits) @ 18 (Gina Field, RN) Datetime: 10/29/2016 19:19 NBP Sys/Jackie/Mean (mmHg): 129 (QS system process) : 73 (QS system process) : 95 (QS system process) Pulse: 95 (QS system process) LaborFlag: Labor (QS system process) Datetime: 10/29/2016 19:15 Monitor Mode: External; Palpation (Gina Field, RN) Frequency (min): 3-4 (Gina Field, RN) Quality: Mild/Moderate (Gina Field, RN) Duration (sec): 60-100 (Gina Field, RN) Resting Tone (Palpate): Relaxed (Gina Field, RN) Monitor Mode: External US (Gina Field, RN) FHR Baseline Rate : 140 (Gina Field, RN) Variability: Moderate 6-25 bpm (Gina Field, RN) Accelerations: 10X10 (Gina Field, RN) Decelerations: Variable (Gina Field, RN) Pitocin (milliunit): Pitocin Remains (milliunits) @ 18 (Gina Field, RN) Datetime: 10/29/2016 19:14 Communication Comments: report given to Estevan Carver RN (Priscilla Medina RN) Datetime: 10/29/2016 19:05 NBP Sys/Jackie/Mean (mmHg): 126 (QS system process) : 73 (QS system process) : 95 (QS system process) Pulse: 90 (QS system process) LaborFlag: Labor (QS system process) Datetime: 10/29/2016 19:00 Monitor Mode: Internal (Priscilla Medina RN) Frequency (min): 2-3 (Priscilla Medina RN) Quality: Mild/Moderate (Priscilla Medina RN) Duration (sec): 50-80 (Priscilla Medina RN) Resting Tone (Palpate): Relaxed (Priscilla Medina RN) Monitor Mode: External US (Priscilla Medina RN) FHR Baseline Rate : 140 (Priscilla Medina RN) Variability: Moderate 6-25 bpm (Priscilla Medina RN) Accelerations: 15X15 (Priscilla Medina RN) Decelerations: None (Priscilla Medina RN) Pitocin (milliunit): Pitocin Remains (milliunits) @ 18 (Priscilla Medina RN)
[2016-10-30] MEDS: PRENATAL VITAMIN W-O CA NO5/FE FUMARATE/FA CAPSULE PO SCH (09:22)
[2016-10-30] MEDS: DOCUSATE SODIUM 100 MG CAPSULE PO SCH ×2 (09:22→18:43)
[2016-10-30] MEDS ORDERED: IBUPROFEN 800 MG TABLET PO SCH (12:00)
--- NOTE | 2016-10-30 14:09 | PDOC PROGRESS REPORT ---
Subjective-OB Subjective: Post Delivery Day: 26 year old. Denies any needs at this time. Pt resting, pain controlled. FC discontinued, pt has not voided yet. Regular diet, ambulatory. Bleeding light. Physical Exam (OB) Vital Signs: Temp Pulse Resp BP Pulse Ox 98.1 F 122 H 18 100/65 100 10/30/16 12:11 10/30/16 12:11 10/30/16 12:11 10/30/16 12:11 10/30/16 12:11 Intake & Output 10/29/16 10/30/16 10/31/16 06:59 06:59 06:59 Intake Total 500 Output Total 400 Balance 500 -400 Weight 111.15 kg - Dressing Removed: No Incision: Dressing Closure Type: Alexander - Lochia Lochia Amount: Small 10-25 ml Lochia Color: Rubra/Red - Abdomen Description: Tender, Soft, Round Hernia Present: No Fundal Description: Firm, Midline Fundal Height: u/u - u/2 Objective-Diagnostic Laboratory: 10/29/16 08:34 10/29/16 08:34 Assessment and Plan(PN) - Assessment and Plan (1) delivery delivered Is this a current diagnosis for this admission?: Yes - Time Spent with Patient Time with patient: Less than 15 minutes Medications reviewed and adjusted accordingly: Yes - Disposition Anticipated Discharge: Home Within: within 24 hours
[2016-10-30 17:42] LABS: HEMATOCRIT 24.9 % (36.0-47.0); HGB HCT DIFFERENCE -0.6; MEAN CORPUSCULAR HEMOGLOBIN 24.1 pg (27.0-33.4); MEAN CORPUSCULAR HGB CONC 32.4 g/dL (32.0-36.0); MEAN CORPUSCULAR VOLUME 74 fl (80-97); RED BLOOD COUNT 3.35 10^6/uL (3.72-5.28)
--- NOTE | 2016-10-30 18:00 | L&D Current Admission ---
Current Admit Datetime Report Generated by CPN: 10/30/2016 18:00 ADMISSION INFORMATION Current Admit Date/Time: 10/29/2016 08:53 (10/29/2016 06:57:Priscilla Medina RN) Reason for Admission: Induction of Labor (10/29/2016 06:57:Priscilla Medina RN) Chief Complaint: Contractions; Vaginal Bleeding (10/29/2016 08:00:Priscilla Medina RN) Medications During : Vitamin; Acetaminophen (Tylenol); Hydroxyzine (Vistaril) (10/29/2016 06:57:Priscilla Medina RN) Meds During -Oth: antibiotics (10/29/2016 06:57:Priscilla Medina RN) EGA per Dates: 40.1 (10/29/2016 06:57:QS system process) Method of Arrival: Wheelchair (10/29/2016 06:57:Priscilla Medina RN) Reason for Induction: Gestational Hypertension (10/29/2016 06:57:Priscilla Medina RN) Records Available: Yes (10/29/2016 06:57:Priscilla Medina RN) General Admission Information: Reviewed (10/29/2016 06:57:Priscilla Medina RN) General Admission Reviewed By: Tracy Medina RN (10/29/2016 06:57:Priscilla Medina RN) BELONGINGS/ADVANCED DIRECTIVES Valuables/Personal Effects: None (10/29/2016 06:57:Priscilla Medina RN) Other Belongings: see consents (10/29/2016 06:57:Priscilla Medina RN) Disposition of Belongings: Sent Home (10/29/2016 06:57:Priscilla Medina RN) Advance Direct for Healthcare: No, and Wants No Information (10/29/2016 06:57:Priscilla Medina RN) Durable Power of [facility] Nurse: No (10/29/2016 06:57:Priscilla Medina RN) Living Will: No (10/29/2016 06:57:Priscilla Medina RN) Organ Donor: No (10/29/2016 06:57:Priscilla Medina RN) Pt Rights Information Given: Yes (10/29/2016 06:57:Priscilla Medina RN) Pt Understands Pt Rights: Yes (10/29/2016 06:57:Priscilla Medina RN) LEARNING ASSESSMENT Knowledge Level: Understands L_D Process; Understands Care Activities; Understands Diagnosis (10/29/2016 06:57:Priscilla Medina RN) Barriers to Learning: None (10/29/2016 06:57:Priscilla Medina RN) Learning Readiness: Motivated (10/29/2016 06:57:Priscilla Medina RN) Learns Best By: 1 to 1 Instruction; Demonstration (10/29/2016 06:57:Priscilla Medina RN) Learning Needs: Labor and Delivery Process; Pain Management; Symptoms to Report; Treatment Plan; Medication; Diagnosis; Nutrition; Equipment; Infant Care; Community Resources (10/29/2016 06:57:Priscilla Medina RN) DOMESTIC VIOLANCE SCREENING Dom Viol Threatened/Hurt: No (10/29/2016 06:57:Priscilla Medina RN) Hx of Abuse/Neglect past 2yrs: No (10/29/2016 06:57:Priscilla Medina RN) Feel Unsafe Going Home: No (10/29/2016 06:57:Priscilla Medina RN) Addt'l Observ Indicating Abuse: No (10/29/2016 06:57:Priscilla Medina RN) Reason Unable to Complete Screen: N/A, Screen Completed (10/29/2016 06:57:Priscilla Medina RN) Considered Personal Harm/Suicide: No (10/29/2016 06:57:Priscilla Medina RN) NUTRITIONAL/FUNCTIONAL SCREENING Problem with Appetite >5 Days: No (10/29/2016 06:57:Priscilla Medina RN) Chew/Swallow Difficulties: No (10/29/2016 06:57:Priscilla Medina RN) Inappropriate Wt Gain/Loss: No (10/29/2016 06:57:Priscilla Medina RN) Presence Skin Breakdown/Ulcer: No (10/29/2016 06:57:Priscilla Medina RN) Special Diet: No (10/29/2016 06:57:Priscilla Medina RN) Pt Requests Compilation Clerk Visit: No (10/29/2016 06:57:Priscilla Medina RN) Hx of Any of the Following?: N/A (10/29/2016 06:57:Priscilla Medina RN) New Diagnosis of: N/A (10/29/2016 06:57:Priscilla Medina RN) Requires Assist w/Ambulation: No (10/29/2016 06:57:Priscilla Medina RN) Uses Assist Device to Ambulate: No (10/29/2016 06:57:Priscilla Medina RN) Pt Requires Help w/ADL's: No (10/29/2016 06:57:Priscilla Medina RN)
--- NOTE | 2016-10-30 18:00 | L&D General Admission ---
General Admit Datetime Report Generated by CPN: 10/30/2016 18:00 INFORMATION Patient Age: 25 (08/27/2016 11:18:QS system process) EDC: 10/28/2016 00:00 (10/29/2016 06:08:Gina Carver RN) : 4 (10/29/2016 06:08:Gina Carver RN) Para: 0 (10/29/2016 07:46:Priscilla Medina RN) Term: 0 (10/29/2016 06:08:Shoshana Hairston RN) : 0 (10/29/2016 06:08:Shoshana Hairston RN) Spontaneous Abortions: 1 (10/29/2016 06:08:Shoshana Hairston RN) Induced Abortions: 2 (10/29/2016 06:08:Shoshana Hairston RN) Livin (10/29/2016 06:08:Shoshana Hairston RN) Cesareans: 0 (10/29/2016 06:08:Shoshana Hairston RN) VBACs: 0 (10/29/2016 06:08:Shoshana Hairston RN) Ectopic: 0 (10/29/2016 06:08:Shoshana Hairston RN) Multiple Births: 0 (10/29/2016 06:08:Shoshana Hairston RN) Baby, Number in Womb: 1 (10/29/2016 07:46:Priscilla Medina RN) CARE Primary Resident Manager: [facility] (10/29/2016 06:08:Shoshana Hairston RN) Resident Manager Other: [facility] (10/29/2016 06:08:Shoshana Hairston RN) Prepregnancy Weight (lb): 220 (10/29/2016 06:08:Shoshana Hairston RN) Prepregnancy Weight (kg): 100.0 (10/29/2016 06:08:QS system process) Height (in): 62 (10/30/2016 11:35:QS system process) ALLERGIES Medication Allergy: No (10/29/2016 06:08:Shoshana Hairston RN) Medication Allergies: No Known Allergies (09/19/2016) (09/19/2016 18:21:QS system process) Latex Allergy: No Latex Allergies (10/29/2016 06:08:Gina Carver RN) Food Allergies: N/A (10/29/2016 06:08:Gina Carver RN) Environmental Allergies: N/A (10/29/2016 06:08:Gina Carver RN) COMMUNICATION Primary Language: Tunisian (10/29/2016 06:08:Shoshana Hairston RN) Medical Tx Preferred Language: Tunisian (10/29/2016 06:08:Shoshana Hairston RN) Communication Barrier(s): None (10/29/2016 06:08:Shoshana Hairston RN) DEMOGRAPHICS Address: [address] [place], [place] [address] [address] (10/29/2016 05:58:QS system process) Zipcode: [address] (08/27/2016 11:18:QS system process) Home (08/27/2016 11:18:QS system process) SSN: [id number] (08/27/2016 11:18:QS system process) Next of Kin Name: PATRICA RANDHAWA (08/27/2016 11:18:QS system process) Next of Kin (08/27/2016 11:18:QS system process) Next of Kin Relationship: MO (08/27/2016 11:18:QS system process) Date of : 1990 (08/27/2016 11:18:QS system process) Marital Status: Single (08/27/2016 11:18:QS system process) Sex: Female (08/27/2016 11:18:QS system process) Race: (08/27/2016 11:18:QS system process) Ethnicity: Non- or (08/27/2016 11:18:QS system process) Church: [employer]an (08/27/2016 11:18:QS system process) FOB Involved: Yes (10/29/2016 06:08:Gina Carver RN) Father of Baby Name: Izaiah Warren (10/29/2016 06:08:Gina Carver RN) DRUG AND ALCOHOL USE Alcohol: No (10/29/2016 06:08:Gina Carver RN) Cigarettes: Never Smoker. [id number] (10/29/2016 06:08:Gina Carver RN) Marijuana: No (10/29/2016 06:08:Gina Carver RN) Cocaine: No (10/29/2016 06:08:Gina Carver RN) Other Illicit Drugs: No (10/29/2016 06:08:Gina Carver RN) VACCINE HISTORY Influenza Vaccine: Yes (10/29/2016 06:08:Gina Carver RN) Pneumococcal Vaccine: No (10/29/2016 06:08:Gina Carver RN) Tetanus Vaccine: Yes (10/29/2016 06:08:Gina Carver RN) Tdap Vaccine: Yes (10/29/2016 06:08:Gina Carver RN) Hepatitis B Vaccine: Uncertain (10/29/2016 06:08:Gina Carver RN) Solution Consultant: [facility] (10/29/2016 06:08:Priscilla Medina RN) Feeding Preference: Both (10/29/2016 06:08:Gina Carver RN) Benefit of Breast Feed Discussed: Yes (10/29/2016 06:08:Gina Carver RN) Circumcision: N/A (10/29/2016 06:08:Gina Carver RN) Classes Attended: No (10/29/2016 06:08:Gina Carver RN) Tubal Ligation: No (10/29/2016 06:08:Gina Carver RN) Tubal Authorization Signed: N/A (10/29/2016 06:08:Gina Carver RN) Consent: N/A (10/29/2016 06:08:Gina aCrver RN) Consent Signed: N/A (10/29/2016 06:08:Gina Carver RN) Plans for Labor and Delivery: None (10/29/2016 06:08:Gina Carver RN) Support Person: Izaiah Warren (10/29/2016 06:08:Gina Carver RN) Support Person Relationship: Significant Other (10/29/2016 06:08:Gina Carver RN) Cultural/Spritual Practice: No (10/29/2016 06:08:Gina Carver RN) Spir/Cult Dietary Needs: No (10/29/2016 06:08:Gina Carver RN) LIVING SITUATION/DISCHARGE PLAN Living Arrangements: Apartment (10/29/2016 06:08:Gina Carver RN) Adequate Access to:: Electric; Heat; Refrigeration; Plumbing/Running water; Phone; Transportation (10/29/2016 06:08:Priscilla Medina RN) WIC Program: Yes (10/29/2016 06:08:Gina Carver RN) Discharge Supervisor Coal Handling Person: Izaiah Warren (10/29/2016 06:08:Gina Carver RN) Person to Help after Discharge: Izaiah Warren (10/29/2016 06:08:Gina Carver RN) Currently Using Commun Resources: No (10/29/2016 06:08:Gina Carver RN) Outside Agency/Stocking Inspector: No (10/29/2016 06:08:Gina Carver RN) Car Seat for Discharge: Yes (10/29/2016 06:08:Gina Carver RN) Adoption Requested: No (10/29/2016 06:08:Gina Cavrer RN) Pt Contact w/infant Post : N/A (10/29/2016 06:08:Gina Carver RN) LABS Blood Type: B Positive (10/29/2016 06:08:Shoshana Hairston RN) Antibody Screen: Negative (10/29/2016 06:08:Shoshana Hairston RN) Rho(G) this : Not Applicable (10/29/2016 06:08:Shoshana Hairston RN) Hemoglobin: 13.2 (10/29/2016 08:34:QS system process) Hematocrit: 38.9 (10/29/2016 08:34:QS system process) MCV: 73 L (10/29/2016 08:34:QS system process) Group Beta Strep: Positive (10/29/2016 06:08:Shoshana Hairston RN) Gonorrhea: Negative (10/29/2016 06:08:Shoshana Hairston RN) Chlamydia: Negative (10/29/2016 06:08:Shoshana Hairston RN) RPR/VDRL: Nonreactive (10/29/2016 06:08:Shoshana Hairston RN) HIV Exposure Test: Negative (10/29/2016 06:08:Shoshana Hairston RN) HIV Results: Negative (10/29/2016 06:08:Shoshana Hairston RN) Hepatitis B: Negative (10/29/2016 06:08:Shoshana Hairston RN) Rubella: Immune (10/29/2016 06:08:Shoshana Hairston RN) Varicella: Non Susceptible (10/29/2016 06:08:Shoshana Hairston RN) OB/PREVIOUS HISTORY Current Procedures: Ultrasound (10/29/2016 06:08:Gina Carver RN) History of Previous : No (10/29/2016 06:08:Gina Carver RN) History of Gestational Diabetes: No (10/29/2016 06:08:Gina Carver RN) History of PIH: No (10/29/2016 06:08:Gina Carver RN) History of Incompetent Cervix: No (10/29/2016 06:08:Gina Carver RN) History of Placenta Previa/Abrup: No (10/29/2016 06:08:Gina Carver RN) History of Macrosomia: No (10/29/2016 06:08:Gina Carver RN) History of IUGR: No (10/29/2016 06:08:Gina Carver RN) History of Hemorrhage: No (10/29/2016 06:08:Gina Carver RN) History of Loss/Stillborn: No (10/29/2016 06:08:Gina Carver RN) History of : No (10/29/2016 06:08:Gina Carver RN) History of D (Rh) Sensitization: No (10/29/2016 06:08:Gina Carver RN) History Recurrent Loss/Stillborn: No (10/29/2016 06:08:Gina Carver RN) History Depression/PP Depression: No (10/29/2016 06:08:Gina Carver RN) History of Uterine Anomaly/NBA: No (10/29/2016 06:08:Gina Carver RN) History of Infertility: No (10/29/2016 06:08:Gina Carver RN) History of ART Treatment: No (10/29/2016 06:08:Gina Carver RN) History of NBA: No (10/29/2016 06:08:Gina Carver RN) Comments Obstetrical History: G1- 10/2006 EAB G2- 10/2011 SAB G3- 10/2015 EAB G4-Current (10/29/2016 06:08:Shoshana Hairston RN) MEDICAL HISTORY Med Hx Diabetes: No (10/29/2016 06:08:Gina Carver RN) Med Hx Hypertension: No (10/29/2016 06:08:Gina Carver RN) Med Hx Heart Disease: No (10/29/2016 06:08:Gina Carver RN) Med Hx Autoimmune Disorder: No (10/29/2016 06:08:Gina Carver RN) Med Hx Kidney Disease/UTI: No (10/29/2016 06:08:Gina Carver RN) Med Hx Neurologic/Epilepsy: No (10/29/2016 06:08:Gina Carver RN) Med Hx Psychiatric Disorders: No (10/29/2016 06:08:Gina Carver RN) Med Hx Hepatitis/Liver Disease: No (10/29/2016 06:08:Gina Carver RN) Med Hx Varicosities/Phlebitis: No (10/29/2016 06:08:Gina Carver RN) Med Hx Thyroid Dysfunction: No (10/29/2016 06:08:Gina Carver RN) Med Hx Trauma/Violence: No (10/29/2016 06:08:Gina Carver RN) Med Hx Blood Transfusion: No (10/29/2016 06:08:Gina Carver RN) Med Hx Pulmonary (Asthma,TB): No (10/29/2016 06:08:Gina Carver RN) Med Hx Breast: No (10/29/2016 06:08:Gina Carver RN) Med Hx MACHINE OPERATORS Surgery: No (10/29/2016 06:08:Gina Carver RN) Med Hx Hospitalization/Surgery: Yes (10/29/2016 06:08:Shoshana Hairston RN) Med Hx Anesthetic Complications: No (10/29/2016 06:08:Gina Carver RN) Med Hx Abnormal Pap Smear: No (10/29/2016 06:08:Gina Carver RN) Other Medical Diseases: No (10/29/2016 06:08:Gina Carver RN) Med Hx Significant Family Hx: No (10/29/2016 06:08:Gina Carver RN) Details of Med/Surg Hx: Tonsilectomy (10/29/2016 06:08:Shoshaan Hairston RN) INFECTIOUS HISTORY Inf Hx Chlamydia: Yes (10/29/2016 06:08:Gina Carver RN) Inf Hx Syphilis: No (10/29/2016 06:08:Gina Carver RN) Inf Hx HIV/AIDS: No (10/29/2016 06:08:Gina Carver RN) Inf Hx Human Papilloma Virus: No (10/29/2016 06:08:Gina Carver RN) Inf Hx Pt/Partner Genital Herpes: No (10/29/2016 06:08:Gina Carver RN) Inf Hx Tuberculosis/Exposure: No (10/29/2016 06:08:Gina Carver RN) Inf Hx Hepatitis B,C: No (10/29/2016 06:08:Gina Carver RN) Inf Hx Rash or Viral Illness: No (10/29/2016 06:08:Gina Carver RN) Details of Infectious Hx: Chlamydia - 2007 (10/29/2016 06:08:Gina Carver RN) GENETIC HISTORY Gen Hx Age >=35 at HEIDE: No (10/29/2016 06:08:Gina Carver RN) Gen Hx Thalassemia: No (10/29/2016 06:08:Gina Carver RN) Gen Hx Congenital Heart Defect: No (10/29/2016 06:08:Gina Carver RN) Gen Hx Neural Tube Defect: No (10/29/2016 06:08:Gina Carver RN) Gen Hx Down's Syndrome: Unknown (10/29/2016 06:08:Priscilla Medina RN) Gen Hx Apollo-Sachs: No (10/29/2016 06:08:Gina Carver RN) Gen Hx Mili: No (10/29/2016 06:08:Gina Carver RN) Gen Hx Familial Dysautonomia: No (10/29/2016 06:08:Gina Carver RN) Gen Hx Sickle Cell Disease/Trait: Yes (10/29/2016 06:08:Gina Carver RN) Gen Hx Hemophilia/Blood Disorder: No (10/29/2016 06:08:Gina Carver RN) Gen Hx Muscular Dystrophy: No (10/29/2016 06:08:Gina Carver RN) Gen Hx Cystic Fibrosis: No (10/29/2016 06:08:Gina Carver RN) Gen Hx Huntingtons Chorea: No (10/29/2016 06:08:Gina Carver RN) Gen Hx Mental Retardation/Autism: No (10/29/2016 06:08:Gina Carver RN) Gen Hx Tested for Fragile X: No (10/29/2016 06:08:Gina Carver RN) Gen Hx Other Inher/Chromosomal: No (10/29/2016 06:08:Gina Carver RN) Gen Hx Maternal Metabolic DO: No (10/29/2016 06:08:Gina Carver RN) Gen Hx Pt Father or FOB Defect: No (10/29/2016 06:08:Gina Carver RN) Gen Hx Other Genetic History: No (10/29/2016 06:08:Gina Carver RN) Gen Hx Drugs/Meds since LMP: Yes (10/29/2016 06:08:Gina Carver RN) Gen Hx Medications: vitamins (10/29/2016 06:08:Gina Carver RN) Details of Genetic History: Patient thinks her mother has sickle cell trait (10/29/2016 06:08:Gina Carver RN)
[2016-10-30 18:04] LABS: HEMOGLOBIN 8.1 g/dL (12.0-15.5)
[2016-10-30 18:11] LABS: WHITE BLOOD COUNT 35.9 10^3/uL (4.0-10.5)
--- NOTE | 2016-10-30 18:15 | L&D Care Plan ---
LD CARE PLANS Datetime Report Generated by CPN: 10/30/2016 18:15 Datetime: 10/29/2016 08:37 Pain State: Actual (LEVAR Gayle) Related To: Labor and Delivery Process; Surgical Procedure; Complication(s) of (LEVAR Gayle) Goal(s): Patients Pain will be Assessed and Managed; Patient will Verbalize Adequate Relief of Pain or the Ability to [place] with Current Pain (LEVAR Gayle) Interventions: Assess Pain Severity on Scale of 0 (None) to 5 (Severe); Assess Type, Location and Intensity of Pain Each Time Client Reports Discomfort and Notify Provider if Unusal Pain Develops; Encourage Proper Breathing and Relaxation Techniques; Offer Alternatives Such as Repositioning, Calm Environment, Massages, Diversional Activities, Ice Pack, Splinting, and Ambulation; Administer Analgesics as Ordered; Assist with Epidural Placement as Appropriate; Evaluate Therapeutic Effectiveness of Medication and Treatments (LEVAR Gayle) Outcome: Patient will Report Absence or Relief of Pain Consistent with Established Pain Goal (LEVAR Gayle) Outcome: Patient will have a Decrease in Signs and Symptoms of Discomfort (LEVAR Gayle) Outcome: Pain will be Controlled During Procedures (LEVAR Gayle) Anxiety State: Risk For (LEVAR Gayle) Related To: Labor and Delivery Process; Fear of Unknown; Significant Life Event (LEVAR Gayle) Goal(s): Patient will have Decreased Anxiety and be able to Function at Acceptable Levels (LEVAR Gayle) Interventions: Assess Verbal and Nonverbal Behavioral Indicators of Anxiety; Assist Patient to Identify and Verbalize Symptoms of Anxiety; Identify and Demonstrate Techniques to Control Anxiety; Assist Patient with Coping Mechanisms to Manage Anxiety; Provide Theraputic Touch for the Patient; Explain to Patient, Using a Calm Reassuring Approach and Nonmedical Terms, All Activities, Procedures, and Concerns; Instruct Patient and Family about Post Discharge Care, Limitations, Symptoms to Report and Resources Available (LEVAR Gayle) Outcome: Patient will Identify, Verbalize and Demonstrate Techniques to Control Anxiety (LEVAR Gayle) Outcome: Patient's Posture, Facial Expressions, Gestures and Activity Level will Reflect Decreased Anxiety (LEVAR Gayle) Outcome: Patient will Verbalize a Sense of Control and/or Acceptance of the Situation (LEVAR Gayle) Outcome: Patient will Identify and Utilize Support Person (LEVAR Gayle) Knowledge Deficit State: Risk For (LEVAR Gayle) Related To: Labor and Delivery Process; Treatment and Procedures; Impending Alterations in Family Dynamics (LEVAR Gayle) Goal(s): Patient will Accurately Verbalize Understanding of Plan of Care and Treatment; Patient and Family will Accurately Verbalize Understanding of the Disease Process (LEVAR Gayle) Interventions: Assess Motivation and Willingness of Patient/Family to Learn; Assess Preferred Learning Mode: One to One Instruction, Reading, Videos, Group Discussion or Demonstration; Assess Barriers to Learning: Pain, Emotional State, Language Barrier, Cognitive Impairment, Visual or Hearing Deficits; Assess Patient and Family Knowledge of Disease Process, Medications and Treatment; Discuss Therapy and/or Treatment Options, Describe Rationale Behind Management, Therapy and Treatment Recommendations; Instruct Patient and Family on Signs and Symptoms to Report; Instruct Patient and Family on Medication Effects and Side Effects; Provide Appropriate and Timely Education Using Multiple Techniques; Provide Patient and Family with Support Group Information and Resources; Give Clear and Thorough Explanations and Demonstrations (LEVAR Gayle) Outcome: Patient and Family will Verbalize Understanding of Condition, Treatment and Signs and Symptoms to Report (LEVAR Gayle) Outcome: Patient will Identify Perceived Learning Needs and Express Motivation to Learn (LEVAR Gayle) Outcome: Patient will Verbalize Understanding of Desired Content, and/or Performs Desired Skill Prior to Discharge (LEVAR Gayle) Infection State: Risk For (LEVAR Gayle) Related To: Prolonged Labor or Induction; Invasive Procedures (LEVAR Gayle) Goal(s): The Patient will be Free of Infection, Vital Signs Stable and Lab Work within Normal Parameters (LEVAR Gayle) Interventions: Instruct and Reinforce Proper Handwashing, Hygiene, and Care Techniques to Patient and Family; Monitor Vital Signs; Monitor Patient for the Following Signs of Infection: Fever, Abdominal Tenderness, Unusual Discharge; Monitor Aminiotic Fluid, Urine and Lochia for Color and Odor; Observe Wounds, Incisions and Invasive Line Sites for Redness, Drainage and Edema; Assess IV Sites per Hospital Policy; Monitor Lab and Test Results and Notify Provider of Abnormal Findings; Assess Nutritional Status and Promote Good Nutrition (LEVAR Gayle) Outcome: Patient will Remain Free of Infection (LEVAR Gayle) Outcome: Infection will be Recognized Early to Allow for Prompt Treatment (LEVAR Gayle) Outcome: Patient will have Vital Signs Within Expected Range (LEVAR Gayle) Fluid Volume State: Risk For (LEVAR Gayle) Related To: Gestational Hypertension; Prolonged Labor or Induction (LEVAR Gayle) Goal(s): Patient will Achieve and Maintain a Balanced Fluid Volume Status; Hemodynamically Stable (LEVAR Gayle) Interventions: Monitor Vital Signs; Auscultate Breath Sounds; Monitor Patient for Skin Turgor, Mucous Membranes, Dry Skin, Weakness, Headaches and Confusion; Provide Oral Fluids as Ordered; Initiate and Maintain Intravenous Fluids as Ordered; Monitor Intake and Output as Indicated Per Patient Status; Accurately Measure Blood Loss; Monitor Lab and Test Results as Obtained and Notify Provider of Abnormal Findings; Monitor Patient's Weight (LEVAR Gayle) Outcome: Patient will have Clear Lung Sounds (LEVAR Gayle) Outcome: Patient will have Vital Signs within Expected Range (LEVAR Gayle) Outcome: Urine Output will be within Expected Range (LEVAR Gayle) Outcome: Patient will have Minimal Generalized or Upper Extremity Edema (LEVAR Gayle) Impaired Skin Integrity State: Not Applicable (LEVAR Gayle) Parenting Impaired State: Not Applicable (LEVAR Gayle) Nutrition State: Not Applicable (Karli Hayden, RNC) Grieving State: Not Applicable (Karli Hayden, RNC) Additional Care Plan State: Not Applicable (Karli Hayden, RNC)
[2016-10-30] MEDS ORDERED: RINGERS SOLUTION,LACTATED 500 ML IV ONE ×2 (19:00→20:30)
[2016-10-30] MEDS: RINGERS SOLUTION,LACTATED 1,000 ML IV PRN ×3 (19:09→20:08)
[2016-10-30] MEDS: CEFTRIAXONE 1 GM/D5W RTU 1 GM/50 ML RTUPB IV SCH (19:11)
[2016-10-30] MEDS: CLINDAMYCIN 900 MG/D5W RTU 50 ML IV SCH (20:06)
[2016-10-30 23:00] LABS: HEMATOCRIT 19.4 % (36.0-47.0); HGB HCT DIFFERENCE 0.4; MEAN CORPUSCULAR HEMOGLOBIN 24.5 pg (27.0-33.4); MEAN CORPUSCULAR HGB CONC 33.8 g/dL (32.0-36.0); MEAN CORPUSCULAR VOLUME 72 fl (80-97); RED BLOOD COUNT 2.69 10^6/uL (3.72-5.28)
[2016-10-30 23:12] LABS: BAND NEUTROPHILS % (MANUAL) 3 % (3-5); BASOPHILS % (MANUAL) 0 % (0-2); EOSINOPHILS % (MANUAL) 0 % (0-6); LYMPHOCYTES % (MANUAL) 6 % (13-45); TOTAL CELLS COUNTED 100
[2016-10-30 23:13] LABS: SMUDGE CELLS PRESENT
[2016-10-30 23:14] LABS: ANISOCYTOSIS 1+; HYPOCHROMASIA 1+; MICROCYTOSIS 1+; OVALOCYTES SLIGHT; PLATELET CLUMPS PRESENT; POIKILOCYTOSIS SLIGHT; POLYCHROMASIA 1+; TOXIC GRANULATION SLIGHT
[2016-10-30 23:15] LABS: HEMOGLOBIN 6.6 g/dL (12.0-15.5)
[2016-10-30 23:16] LABS: WHITE BLOOD COUNT 30.8 10^3/uL (4.0-10.5)
[2016-10-31] MEDS ORDERED: ACETAMINOPHEN 325 MG TABLET PO SCH (00:30)
[2016-10-31] MEDS ORDERED: DIPHENHYDRAMINE HCL 25 MG CAPSULE PO SCH (00:30)
[2016-10-31] MEDS: RINGERS SOLUTION,LACTATED 1,000 ML IV PRN (01:35)
[2016-10-31] MEDS: IBUPROFEN 800 MG TABLET PO SCH ×4 (05:00→23:00)
[2016-10-31] MEDS: CLINDAMYCIN 900 MG/D5W RTU 50 ML IV SCH ×3 (05:00→21:33)
--- NOTE | 2016-10-31 06:00 | L&D General Admission ---
General Admit Datetime Report Generated by CPN: 10/31/2016 06:00 INFORMATION Patient Age: 25 (08/27/2016 11:18:QS system process) EDC: 10/28/2016 00:00 (10/29/2016 06:08:Gina Carver RN) : 4 (10/29/2016 06:08:Gina Carver RN) Para: 0 (10/29/2016 07:46:Priscilla Medina RN) Term: 0 (10/29/2016 06:08:Shoshana Hairston RN) : 0 (10/29/2016 06:08:Shoshana Hairston RN) Spontaneous Abortions: 1 (10/29/2016 06:08:Shoshana Hairston RN) Induced Abortions: 2 (10/29/2016 06:08:Shoshana Hairston RN) Livin (10/29/2016 06:08:Shoshana Hairston RN) Cesareans: 0 (10/29/2016 06:08:Shoshana Hairston RN) VBACs: 0 (10/29/2016 06:08:Shoshana Hairston RN) Ectopic: 0 (10/29/2016 06:08:Shoshana Hairston RN) Multiple Births: 0 (10/29/2016 06:08:Shoshana Hairston RN) Baby, Number in Womb: 1 (10/29/2016 07:46:Priscilla Medina RN) CARE Primary Fermenter Wine: [facility] (10/29/2016 06:08:Shoshana Hairston RN) Fermenter Wine Other: [facility] (10/29/2016 06:08:Shoshana Hairston RN) Prepregnancy Weight (lb): 220 (10/29/2016 06:08:Shoshana Hairston RN) Prepregnancy Weight (kg): 100.0 (10/29/2016 06:08:QS system process) Height (in): 62 (10/30/2016 11:35:QS system process) ALLERGIES Medication Allergy: No (10/29/2016 06:08:Shoshana Hairston RN) Medication Allergies: No Known Allergies (09/19/2016) (09/19/2016 18:21:QS system process) Latex Allergy: No Latex Allergies (10/29/2016 06:08:Gina Carver RN) Food Allergies: N/A (10/29/2016 06:08:Gina Carver RN) Environmental Allergies: N/A (10/29/2016 06:08:Gina Carver RN) COMMUNICATION Primary Language: Bermudian (10/29/2016 06:08:Shoshana Hairston RN) Medical Tx Preferred Language: Bermudian (10/29/2016 06:08:Shoshana Hairston RN) Communication Barrier(s): None (10/29/2016 06:08:Shoshana Hairston RN) DEMOGRAPHICS Address: [address] [place], [place] [address] [address] (10/29/2016 05:58:QS system process) Zipcode: [address] (08/27/2016 11:18:QS system process) Home (08/27/2016 11:18:QS system process) SSN: [id number] (08/27/2016 11:18:QS system process) Next of Kin Name: PATRICA RANDHAWA (08/27/2016 11:18:QS system process) Next of Kin (08/27/2016 11:18:QS system process) Next of Kin Relationship: MO (08/27/2016 11:18:QS system process) Date of : 1990 (08/27/2016 11:18:QS system process) Marital Status: Single (08/27/2016 11:18:QS system process) Sex: Female (08/27/2016 11:18:QS system process) Race: (08/27/2016 11:18:QS system process) Ethnicity: Non- or (08/27/2016 11:18:QS system process) Catholic: Muslim (08/27/2016 11:18:QS system process) FOB Involved: Yes (10/29/2016 06:08:Gina Carver RN) Father of Baby Name: Izaiah Warren (10/29/2016 06:08:Gina Carver RN) DRUG AND ALCOHOL USE Alcohol: No (10/29/2016 06:08:Gina Carver RN) Cigarettes: Never Smoker. [id number] (10/29/2016 06:08:Gina Carver RN) Marijuana: No (10/29/2016 06:08:Gina Carver RN) Cocaine: No (10/29/2016 06:08:Gina Carver RN) Other Illicit Drugs: No (10/29/2016 06:08:Gina Carver RN) VACCINE HISTORY Influenza Vaccine: Yes (10/29/2016 06:08:Gina Carver RN) Pneumococcal Vaccine: No (10/29/2016 06:08:Gina Carver RN) Tetanus Vaccine: Yes (10/29/2016 06:08:Gina Carver RN) Tdap Vaccine: Yes (10/29/2016 06:08:Gina Carver RN) Hepatitis B Vaccine: Uncertain (10/29/2016 06:08:Gina Carver RN) Chemical Analyst: [facility] (10/29/2016 06:08:Priscilla Medina RN) Feeding Preference: Both (10/29/2016 06:08:Gina Carver RN) Benefit of Breast Feed Discussed: Yes (10/29/2016 06:08:Gina Carver RN) Circumcision: N/A (10/29/2016 06:08:Gina Carver RN) Classes Attended: No (10/29/2016 06:08:Gina Carver RN) Tubal Ligation: No (10/29/2016 06:08:Gina Carver RN) Tubal Authorization Signed: N/A (10/29/2016 06:08:Gina Carver RN) Consent: N/A (10/29/2016 06:08:Gina Carver RN) Consent Signed: N/A (10/29/2016 06:08:Gina Carver RN) Plans for Labor and Delivery: None (10/29/2016 06:08:Gina Carver RN) Support Person: Izaiah Warren (10/29/2016 06:08:Gina Carver RN) Support Person Relationship: Significant Other (10/29/2016 06:08:Gina Carver RN) Cultural/Spritual Practice: No (10/29/2016 06:08:Gina Carver RN) Spir/Cult Dietary Needs: No (10/29/2016 06:08:Gina Carver RN) LIVING SITUATION/DISCHARGE PLAN Living Arrangements: Apartment (10/29/2016 06:08:Gina Carver RN) Adequate Access to:: Electric; Heat; Refrigeration; Plumbing/Running water; Phone; Transportation (10/29/2016 06:08:Priscilla Medina RN) WIC Program: Yes (10/29/2016 06:08:Gina Carver RN) Discharge Critical Care Nurse Specialist Person: Izaiah Warren (10/29/2016 06:08:Gina Carver RN) Person to Help after Discharge: Izaiah Warren (10/29/2016 06:08:Gina Carver RN) Currently Using Commun Resources: No (10/29/2016 06:08:Gina Carver RN) Outside Agency/Automobile Inspector: No (10/29/2016 06:08:Gina Carver RN) Car Seat for Discharge: Yes (10/29/2016 06:08:Gina Carver RN) Adoption Requested: No (10/29/2016 06:08:Gina Carver RN) Pt Contact w/infant Post : N/A (10/29/2016 06:08:Gina Carver RN) LABS Blood Type: B Positive (10/29/2016 06:08:Shoshana Hairston RN) Antibody Screen: Negative (10/29/2016 06:08:Shoshana Hairston RN) Rho(G) this : Not Applicable (10/29/2016 06:08:Shoshana Hairston RN) Hemoglobin: 6.6 L (Annotations: VERBAL RESULT GIVEN TO Margarita LAFLEUR RN AT 2315 10/30/16 BY BURAK HONEYCUTT. VERIFIED BY READ BACK.) (10/30/2016 22:50:QS system process) Hematocrit: 19.4 L (10/30/2016 22:50:QS system process) MCV: 72 L (10/30/2016 22:50:QS system process) Group Beta Strep: Positive (10/29/2016 06:08:Shoshana Hairston RN) Gonorrhea: Negative (10/29/2016 06:08:Shoshana Hairston RN) Chlamydia: Negative (10/29/2016 06:08:Shoshana Hairston RN) RPR/VDRL: Nonreactive (10/29/2016 06:08:Shoshana Hairston RN) HIV Exposure Test: Negative (10/29/2016 06:08:Shoshana Hairston RN) HIV Results: Negative (10/29/2016 06:08:Shohsana Hairston RN) Hepatitis B: Negative (10/29/2016 06:08:Shoshana Hairston RN) Rubella: Immune (10/29/2016 06:08:Shoshana Hairston RN) Varicella: Non Susceptible (10/29/2016 06:08:Shoshana Hairston RN) OB/PREVIOUS HISTORY Current Procedures: Ultrasound (10/29/2016 06:08:Gina Carver RN) History of Previous : No (10/29/2016 06:08:Gina Carver RN) History of Gestational Diabetes: No (10/29/2016 06:08:Gina Carver RN) History of PIH: No (10/29/2016 06:08:Gina Carver RN) History of Incompetent Cervix: No (10/29/2016 06:08:Gina Carver RN) History of Placenta Previa/Abrup: No (10/29/2016 06:08:Gina Carver RN) History of Macrosomia: No (10/29/2016 06:08:Gina Carver RN) History of IUGR: No (10/29/2016 06:08:Gina Carver RN) History of Hemorrhage: No (10/29/2016 06:08:Gina Carver RN) History of Loss/Stillborn: No (10/29/2016 06:08:Gina Carver RN) History of : No (10/29/2016 06:08:Gina Carver RN) History of D (Rh) Sensitization: No (10/29/2016 06:08:Gina Carver RN) History Recurrent Loss/Stillborn: No (10/29/2016 06:08:Gina Carver RN) History Depression/PP Depression: No (10/29/2016 06:08:Gina Carver RN) History of Uterine Anomaly/NBA: No (10/29/2016 06:08:Gina Carver RN) History of Infertility: No (10/29/2016 06:08:Gina Carver RN) History of ART Treatment: No (10/29/2016 06:08:Gina Carver RN) History of NBA: No (10/29/2016 06:08:Gina Carver RN) Comments Obstetrical History: G1- 10/2006 EAB G2- 10/2011 SAB G3- 10/2015 EAB G4-Current (10/29/2016 06:08:Shoshana Hairston RN) MEDICAL HISTORY Med Hx Diabetes: No (10/29/2016 06:08:Gina Carver RN) Med Hx Hypertension: No (10/29/2016 06:08:Gina Carver RN) Med Hx Heart Disease: No (10/29/2016 06:08:Gina Carver RN) Med Hx Autoimmune Disorder: No (10/29/2016 06:08:Gina Carver RN) Med Hx Kidney Disease/UTI: No (10/29/2016 06:08:Gina Carver RN) Med Hx Neurologic/Epilepsy: No (10/29/2016 06:08:Gina Carver RN) Med Hx Psychiatric Disorders: No (10/29/2016 06:08:Gina Carver RN) Med Hx Hepatitis/Liver Disease: No (10/29/2016 06:08:Gina Carver RN) Med Hx Varicosities/Phlebitis: No (10/29/2016 06:08:Gina Carver RN) Med Hx Thyroid Dysfunction: No (10/29/2016 06:08:Gina Carver RN) Med Hx Trauma/Violence: No (10/29/2016 06:08:Gina Carver RN) Med Hx Blood Transfusion: No (10/29/2016 06:08:Gina Carver RN) Med Hx Pulmonary (Asthma,TB): No (10/29/2016 06:08:Gina Carver RN) Med Hx Breast: No (10/29/2016 06:08:Gina Carver RN) Med Hx EVAPORATOR SUPERVISOR Surgery: No (10/29/2016 06:08:Gina Carver RN) Med Hx Hospitalization/Surgery: Yes (10/29/2016 06:08:Shoshana Hairston RN) Med Hx Anesthetic Complications: No (10/29/2016 06:08:Gina Carver RN) Med Hx Abnormal Pap Smear: No (10/29/2016 06:08:Gina Carver RN) Other Medical Diseases: No (10/29/2016 06:08:Gina Carver RN) Med Hx Significant Family Hx: No (10/29/2016 06:08:Gina Carver RN) Details of Med/Surg Hx: Tonsilectomy (10/29/2016 06:08:Shoshana Hairston RN) INFECTIOUS HISTORY Inf Hx Chlamydia: Yes (10/29/2016 06:08:Gina Carver RN) Inf Hx Syphilis: No (10/29/2016 06:08:Gina Carver RN) Inf Hx HIV/AIDS: No (10/29/2016 06:08:Gina Carver RN) Inf Hx Human Papilloma Virus: No (10/29/2016 06:08:Gina Carver RN) Inf Hx Pt/Partner Genital Herpes: No (10/29/2016 06:08:Gina Carver RN) Inf Hx Tuberculosis/Exposure: No (10/29/2016 06:08:Gina Carver RN) Inf Hx Hepatitis B,C: No (10/29/2016 06:08:Gina Carver RN) Inf Hx Rash or Viral Illness: No (10/29/2016 06:08:Gina Carver RN) Details of Infectious Hx: Chlamydia - 2007 (10/29/2016 06:08:Gina Carver RN) GENETIC HISTORY Gen Hx Age >=35 at HEIDE: No (10/29/2016 06:08:Gina Carver RN) Gen Hx Thalassemia: No (10/29/2016 06:08:Gina Carver RN) Gen Hx Congenital Heart Defect: No (10/29/2016 06:08:Gina Carver RN) Gen Hx Neural Tube Defect: No (10/29/2016 06:08:Gina Carver RN) Gen Hx Down's Syndrome: Unknown (10/29/2016 06:08:Priscilla Medina RN) Gen Hx Apollo-Sachs: No (10/29/2016 06:08:Gina Carver RN) Gen Hx Mili: No (10/29/2016 06:08:Gina Carver RN) Gen Hx Familial Dysautonomia: No (10/29/2016 06:08:Gina Carver RN) Gen Hx Sickle Cell Disease/Trait: Yes (10/29/2016 06:08:Gina Carver RN) Gen Hx Hemophilia/Blood Disorder: No (10/29/2016 06:08:Gina Carver RN) Gen Hx Muscular Dystrophy: No (10/29/2016 06:08:Gina Carver RN) Gen Hx Cystic Fibrosis: No (10/29/2016 06:08:Gina Carver RN) Gen Hx Huntingtons Chorea: No (10/29/2016 06:08:Gina Carver RN) Gen Hx Mental Retardation/Autism: No (10/29/2016 06:08:Gina Carver RN) Gen Hx Tested for Fragile X: No (10/29/2016 06:08:Gina Carver RN) Gen Hx Other Inher/Chromosomal: No (10/29/2016 06:08:Gina Carver RN) Gen Hx Maternal Metabolic DO: No (10/29/2016 06:08:Gina Carver RN) Gen Hx Pt Father or FOB Defect: No (10/29/2016 06:08:Gina Carver RN) Gen Hx Other Genetic History: No (10/29/2016 06:08:Gina Carver RN) Gen Hx Drugs/Meds since LMP: Yes (10/29/2016 06:08:Gina Carver RN) Gen Hx Medications: vitamins (10/29/2016 06:08:Gina Carver RN) Details of Genetic History: Patient thinks her mother has sickle cell trait (10/29/2016 06:08:Gina Carver RN)
[2016-10-31] MEDS: CEFTRIAXONE 1 GM/D5W RTU 1 GM/50 ML RTUPB IV SCH ×2 (06:19→18:36)
[2016-10-31 07:22] LABS: HEMATOCRIT 21.4 % (36.0-47.0); HGB HCT DIFFERENCE 0.8; MEAN CORPUSCULAR HEMOGLOBIN 25.9 pg (27.0-33.4); MEAN CORPUSCULAR HGB CONC 34.5 g/dL (32.0-36.0); MEAN CORPUSCULAR VOLUME 75 fl (80-97); RED BLOOD COUNT 2.84 10^6/uL (3.72-5.28); RED CELL DISTRIBUTION WIDTH 19.2 % (11.5-14.0); WHITE BLOOD COUNT 26.3 10^3/uL (4.0-10.5)
[2016-10-31 07:36] LABS: HEMOGLOBIN 7.4 g/dL (12.0-15.5)
[2016-10-31 07:38] LABS: BASOPHILS % (MANUAL) 0 % (0-2); EOSINOPHILS % (MANUAL) 1 % (0-6); LYMPHOCYTES % (MANUAL) 8 % (13-45); TOTAL CELLS COUNTED 100
[2016-10-31 07:39] LABS: ANISOCYTOSIS 2+; MICROCYTOSIS 1+; POLYCHROMASIA SLIGHT; TOXIC GRANULATION SLIGHT
--- NOTE | 2016-10-31 08:37 | PDOC PROGRESS REPORT ---
Subjective-OB Subjective: Post Delivery Day: 26 year old. Has not passed any gas at this time. Physical Exam (OB) Vital Signs: Temp Pulse Resp BP Pulse Ox 97.8 F 118 H 28 H 119/64 97 10/31/16 04:39 10/31/16 04:39 10/31/16 03:56 10/31/16 04:39 10/31/16 04:39 Intake & Output 10/30/16 10/31/16 11/01/16 06:59 06:59 06:59 Intake Total 500 1500 Output Total 1080 Balance 500 420 Weight 111.15 kg - PIH/Pre-Eclampsia Clonus: Negative - Dressing Removed: Yes - medipore Incision: Open Closure Type: Ernesto - Lochia Lochia Amount: Small 10-25 ml Lochia Color: Rubra/Red - Abdomen Description: Tender, Round Hernia Present: No Bowel Sounds: Hypoactive Flatus Presence: Absent Stool: No Fundal Description: Firm, Midline Fundal Height: u/u - u/2 Objective-Diagnostic Laboratory: 10/31/16 06:35 10/29/16 08:34 10/29/16 10/30/16 10/30/16 08:34 17:25 22:50 WBC 35.9 H* D 30.8 H* RBC 3.35 L 2.69 L Hgb 8.1 L D 6.6 L Hct 24.9 L 19.4 L MCV 74 L 72 L MCH 24.1 L 24.5 L MCHC 32.4 33.8 RDW 17.0 H 17.0 H Plt Count 236 183 Seg Neutrophils % Not Reportable Lymphocytes % Not Reportable Monocytes % Not Reportable Eosinophils % Not Reportable Basophils % Not Reportable Absolute Neutrophils Not Reportable Absolute Lymphocytes Not Reportable Absolute Monocytes Not Reportable Absolute Eosinophils Not Reportable Absolute Basophils Not Reportable Blood Type B POSITIVE Antibody Screen NEGATIVE 10/31/16 06:35 WBC 26.3 H RBC 2.84 L Hgb 7.4 L Hct 21.4 L MCV 75 L MCH 25.9 L MCHC 34.5 RDW 19.2 H Plt Count 169 Seg Neutrophils % Not Reportable Lymphocytes % Not Reportable Monocytes % Not Reportable Eosinophils % Not Reportable Basophils % Not Reportable Absolute Neutrophils Not Reportable Absolute Lymphocytes Not Reportable Absolute Monocytes Not Reportable Absolute Eosinophils Not Reportable Absolute Basophils Not Reportable Blood Type Antibody Screen Assessment and Plan(PN) - Time Spent with Patient Medications reviewed and adjusted accordingly: Yes - Disposition Anticipated Discharge: Home
[2016-10-31] MEDS: PRENATAL VITAMIN W-O CA NO5/FE FUMARATE/FA CAPSULE PO SCH (09:46)
[2016-10-31] MEDS: DOCUSATE SODIUM 100 MG CAPSULE PO SCH ×2 (09:46→17:36)
[2016-10-31] MEDS: OXYCODONE-ACETAMINOPHEN 5-325 MG TABLET PO PRN ×2 (16:00→22:57)
[2016-11-01] MEDS: CLINDAMYCIN 900 MG/D5W RTU 50 ML IV SCH ×2 (05:04→15:21)
[2016-11-01] MEDS: IBUPROFEN 800 MG TABLET PO SCH ×2 (05:05→11:21)
[2016-11-01 08:42] LABS: HEMATOCRIT 18.5 % (36.0-47.0); HGB HCT DIFFERENCE 0.4; MEAN CORPUSCULAR HEMOGLOBIN 25.9 pg (27.0-33.4); MEAN CORPUSCULAR HGB CONC 34.3 g/dL (32.0-36.0); MEAN CORPUSCULAR VOLUME 75 fl (80-97); RED BLOOD COUNT 2.45 10^6/uL (3.72-5.28); RED CELL DISTRIBUTION WIDTH 18.4 % (11.5-14.0); WHITE BLOOD COUNT 21.9 10^3/uL (4.0-10.5)
[2016-11-01 08:50] VITALS: BP 143/76
[2016-11-01 09:05] LABS: HEMOGLOBIN 6.3 g/dL (12.0-15.5)
[2016-11-01] MEDS: DOCUSATE SODIUM 100 MG CAPSULE PO SCH (09:48)
[2016-11-01] MEDS: PRENATAL VITAMIN W-O CA NO5/FE FUMARATE/FA CAPSULE PO SCH (09:48)
--- NOTE | 2016-11-01 10:09 | PDOC DISCHARGE SUMMARY ---
Final Diagnosis Discharge Date: 11/01/16 - Final Diagnosis (1) delivery delivered Is this a current diagnosis for this admission?: Yes (2) Gestational hypertension Is this a current diagnosis for this admission?: Yes (3) Positive GBS test Is this a current diagnosis for this admission?: Yes (4) Acute blood loss anemia Is this a current diagnosis for this admission?: Yes Discharge Data - Discharge Medication Home Medications: Pnv No.122/Iron/Folic Acid [ Multi Tablet] 1 each PO DAILY 10/29/16 Gestational Age: 40.1 Reason(s) for Admission: Induction of Labor, PIH, Group B Strep Positive Procedures: NST Intrapartum Procedure(s): : Low Cervical, Transverse - [place] Data Baby 1 Female at 1 minute: 8 at 5 minutes: 9 Weight: 3340 kg Home with Mother: Yes Complications: No - Diagnosis Test Laboratory: Temp Pulse Resp BP Pulse Ox 97.9 F 115 H 18 143/76 H 100 11/01/16 08:50 11/01/16 08:50 11/01/16 08:50 11/01/16 08:50 11/01/16 08:50 10/29/16 10/29/16 10/30/16 06:09 08:34 17:25 RBC 5.33 H 3.35 L Hgb 13.2 8.1 L D Hct 38.9 24.9 L Urine Opiates Screen NEGATIVE 10/30/16 10/31/16 11/01/16 22:50 06:35 08:29 RBC 2.69 L 2.84 L 2.45 L Hgb 6.6 L 7.4 L 6.3 L Hct 19.4 L 21.4 L 18.5 L Urine Opiates Screen - Discharge information/Instructions Discharge Activity: Activity As Tolerated, Balance Activity w/Rest, No Driving, No Lifting Over 10 Pounds, No Lifting/Push/Pulling, Pelvic Rest, Slowly Increase Activity, No tub bath Discharge Diet: Regular Disposition: HOME, SELF-CARE Follow up with: [facility] in: 1, Weeks
[2016-11-01] MEDS: CEFTRIAXONE 1 GM/D5W RTU 1 GM/50 ML RTUPB IV SCH (10:14)
[2016-11-01] MEDS: FERROUS SULFATE 325 MG TABLET PO SCH ×2 (10:15→15:21)
--- NOTE | 2016-11-13 10:29 | Operative Report ---
Operative Report DATE OF SURGERY: 10/29/16 PREOPERATIVE DIAGNOSIS: Term Labor. Failure to Progress. induction for Hypertension POSTOPERATIVE DIAGNOSIS: Same, delivered OPERATION: Priamry Low Transverse Section SURGEON: FLORA DIAZ ANESTHESIA: Epidural TISSUE REMOVED OR ALTERED: placenta COMPLICATIONS: none ESTIMATED BLOOD LOSS: 600cc INTRAOPERATIVE FINDINGS: viable female infant ap 8/9. Manually removed placenta 3vc. normal uterus, ovaries, tubes PROCEDURE: After appropriate consents had been obtained, the patient was taken to the operating room where regional anesthesia was placed without difficulty. The patient was prepped and draped in the normal sterile fashion in the dorsal supine position with a leftward tilt. Time out procedure was performed. Anesthesia was determined to be adequate and a pfannenstiel incision was made. The fascia was nicked in the midline then extended bilaterally with Gallo scissors. The fascia was elevated and then the rectus muscles dissected off sharply. The rectus muscles were then in the midline and the peritonuem identified. The peritoneum was entered sharply and extended with good visualization of the bladder. Bladder blade was inserted and the bladder flap carefully dissected off the lower uterine segment. A transverse incision was made with the scalpel then extended bilaterally in an upward outward motion across the lower uterine segment. Amniotomy revealed clear fluid. The vertex was grasped and elevated easily through the incision followed by the remainder of the infant. The cord was doubly clamped and ligated. The was handed off the operative field to the waiting pediatric team. The placenta was then extracted manually intact. The uterus was exteriorized and cleansed of membranous tissue with a sponge on the process equipment operator's hand. The uterine incision was then repaired using 0 vicryl in a running locked fashion. A second layer of the same suture was used to imbricate for hemastasis. The uterus was then returned to the abdomen and gutters were cleared of clots and debris. The fascial incision was closed with 0 vicryl in a running fashion to the midline. The subcutaneous layer was closed with 0 plain in a running stitch. the skin was closed with amari. Sponge, lap and needle counts were correct. The patient was transferred to recovery in stable condition.
== END 2016-11-01 15:27 | disposition home or self-care (01) | DRG 765 ==
LOC: LC 05:58 → LR 08:34 → 2S 10-30 02:43
PROVIDERS: ADMIT Obstetrics & Gynecology; ATTEND Obstetrics & Gynecology
PROC: 10D00Z1 Extraction of Products of Conception, Low, Open Approach (ICD-10-PCS; principal; 2016-10-30)
PROC: 30233N1 Transfusion of Nonautologous Red Blood Cells into Peripheral Vein, Percutaneous Approach (ICD-10-PCS; 2016-10-31)
DX: O13.4 Gestational [pregnancy-induced] hypertension without significant proteinuria, complicating childbirth (principal); D62 Acute posthemorrhagic anemia; O99.824 Streptococcus B carrier state complicating childbirth; O77.0 Labor and delivery complicated by meconium in amniotic fluid; O62.1 Secondary uterine inertia; O99.214 Obesity complicating childbirth; O99.02 Anemia complicating childbirth; Z3A.40 40 weeks gestation of pregnancy; Z37.0 Single live birth; Z68.39 Body mass index [BMI] 39.0-39.9, adult
CPT/HCPCS: 1961; 36415; 36430; 80053; 80307; 81005; 82962; 83615; 84550; 85025; 85027; 86592; 86850; 86900; 86901; 86920; 94799; J0131; J0690; J0696; J1100; J1170; J1885; J2250; J2370; J2405; J2540; J2550; J2590; J3010; J3490; J7120; P9016; Q0114

== ENCOUNTER 2016-11-05 15:58 | Inpatient (IN) | payer MEDICAID ==
[2016-11-05 16:56] LABS: HEMATOCRIT 22.5 % (36.0-47.0); HGB HCT DIFFERENCE 0.3; MEAN CORPUSCULAR HEMOGLOBIN 25.4 pg (27.0-33.4); MEAN CORPUSCULAR VOLUME 75 fl (80-97); RED BLOOD COUNT 3.01 10^6/uL (3.72-5.28); RED CELL DISTRIBUTION WIDTH 18.5 % (11.5-14.0); WHITE BLOOD COUNT 16.8 10^3/uL (4.0-10.5)
[2016-11-05 17:07] LABS: ANION GAP 19 (5-19); BLOOD UREA NITROGEN 31 mg/dL (7-20); CALCIUM 8.9 mg/dL (8.4-10.2); CARBON DIOXIDE 20 mmol/L (22-30); CHLORIDE 99 mmol/L (98-107); CREATININE RESULT 1.56 mg/dL (0.52-1.25); GLUCOSE 102 mg/dL (75-110); POTASSIUM 4.3 mmol/L (3.6-5.0); SODIUM 137.7 mmol/L (137-145)
[2016-11-05 17:13] LABS: HEMOGLOBIN 7.6 g/dL (12.0-15.5)
[2016-11-05 17:23] LABS: BAND NEUTROPHILS % (MANUAL) 3 % (3-5); BASOPHILS % (MANUAL) 0 % (0-2); EOSINOPHILS % (MANUAL) 0 % (0-6); LYMPHOCYTES % (MANUAL) 10 % (13-45); TOTAL CELLS COUNTED 100
[2016-11-05 17:24] LABS: ANISOCYTOSIS 1+; HYPOCHROMASIA SLIGHT; MICROCYTOSIS 1+; POLYCHROMASIA SLIGHT; TOXIC GRANULATION SLIGHT
[2016-11-05] MEDS: HYDROMORPHONE HCL INJ/PF 2 MG/ML AMPULE IV PRN (18:33)
[2016-11-05] MEDS ORDERED: DIPHENHYDRAMINE HCL 50 MG/ML VIAL IV PRN (19:47)
[2016-11-05] MEDS ORDERED: ACETAMINOPHEN 325 MG TABLET PO PRN (19:48)
[2016-11-05] MEDS ORDERED: ONDANSETRON HCL INJ/PF 4 MG/2 ML SDV IV PRN (19:49)
[2016-11-05] MEDS ORDERED: PHENOL/SODIUM PHENOLATE 100 SPRAY/177 ML BOTTLE PO PRN (22:08)
[2016-11-06] MEDS: HYDROMORPHONE HCL INJ/PF 2 MG/ML AMPULE IV PRN ×3 (01:12→16:28)
[2016-11-06 02:52] LABS: HEMATOCRIT 23.4 % (36.0-47.0); HEMOGLOBIN 8.2 g/dL (12.0-15.5); HGB HCT DIFFERENCE 1.2; MEAN CORPUSCULAR HEMOGLOBIN 26.2 pg (27.0-33.4); MEAN CORPUSCULAR HGB CONC 35.1 g/dL (32.0-36.0); MEAN CORPUSCULAR VOLUME 75 fl (80-97); RED BLOOD COUNT 3.14 10^6/uL (3.72-5.28); RED CELL DISTRIBUTION WIDTH 18.6 % (11.5-14.0); WHITE BLOOD COUNT 11.5 10^3/uL (4.0-10.5)
[2016-11-06 03:23] LABS: BAND NEUTROPHILS % (MANUAL) 9 % (3-5); BASOPHILS % (MANUAL) 0 % (0-2); EOSINOPHILS % (MANUAL) 0 % (0-6); LYMPHOCYTES % (MANUAL) 15 % (13-45); TOTAL CELLS COUNTED 100
[2016-11-06 03:25] LABS: ANISOCYTOSIS 2+; MICROCYTOSIS 1+; POIKILOCYTOSIS SLIGHT; POLYCHROMASIA SLIGHT; TEAR DROP CELLS SLIGHT; TOXIC GRANULATION SLIGHT; TOXIC VACUOLATION PRESENT
[2016-11-06] MEDS ORDERED: AMPICILLIN SODIUM/SULBACTAM NA 3 GM in NORMAL SALINE 100 ML IV ONE ×2 (03:30→08:00)
[2016-11-06] MEDS ORDERED: AMPICILLIN SOD/SULBACTAM 3 GM VIAL ONE (03:45)
[2016-11-06 07:41] LABS: HEMATOCRIT 24.3 % (36.0-47.0); HEMOGLOBIN 8.5 g/dL (12.0-15.5); HGB HCT DIFFERENCE 1.2; MEAN CORPUSCULAR HEMOGLOBIN 26.2 pg (27.0-33.4); MEAN CORPUSCULAR HGB CONC 35.2 g/dL (32.0-36.0); MEAN CORPUSCULAR VOLUME 74 fl (80-97); RED BLOOD COUNT 3.27 10^6/uL (3.72-5.28); RED CELL DISTRIBUTION WIDTH 18.6 % (11.5-14.0); WHITE BLOOD COUNT 11.3 10^3/uL (4.0-10.5)
[2016-11-06 08:07] LABS: ALANINE AMINOTRANSFERASE 28 U/L (9-52); ALBUMIN 2.4 g/dL (3.5-5.0); ALKALINE PHOSPHATASE 115 U/L (38-126); ANION GAP 14 (5-19); ASPARTATE AMINO TRANSFERASE 33 U/L (14-36); BILIRUBIN,TOTAL 1.8 mg/dL (0.2-1.3); BLOOD UREA NITROGEN 40 mg/dL (7-20); CALCIUM 8.6 mg/dL (8.4-10.2); CARBON DIOXIDE 23 mmol/L (22-30); CHLORIDE 103 mmol/L (98-107); CREATININE RESULT 1.78 mg/dL (0.52-1.25); GLUCOSE 93 mg/dL (75-110); POTASSIUM 4.6 mmol/L (3.6-5.0); SODIUM 140.2 mmol/L (137-145); TOTAL PROTEIN 5.7 g/dL (6.3-8.2)
[2016-11-06] MEDS ORDERED: RINGERS SOLUTION,LACTATED 1,000 ML IV PRN (08:38)
[2016-11-06] MEDS: AMPICILLIN SODIUM/SULBACTAM NA 3 GM in NORMAL SALINE 100 ML IV SCH ×2 (09:04→16:30)
[2016-11-06] MEDS: METOCLOPRAMIDE HCL INJ/PF 10 MG/2 ML SDV IV SCH ×2 (09:43→16:29)
[2016-11-06] MEDS ORDERED: LORAZEPAM INJ 2 MG/1 ML VIAL ONE (10:41)
[2016-11-06] MEDS ORDERED: NORMAL SALINE 1000 ML 1,000 ML IV PRN (11:33)
[2016-11-06] MEDS ORDERED: HYDRALAZINE HCL INJ/PF 20 MG/1 ML SDV IV PRN (11:54)
--- NOTE | 2016-11-06 11:56 | PDOC CONSULTATION ---
Consultation Consult Date: 11/06/16 Attending physician:: SHAMIR BULLOCK Consult reason:: Sepsis History of Present Illness Admission Date/PCP: 11/05/16 16:37 SHAILESH METZ MD Patient complains of: Abdominal pain History of Present Illness: MEHNAZ RANDHAWA is a 26 year old female that is one week status post presents to the hospital for abdominal pain and fevers. She has been admitted to the [facility] service for sepsis. She is also noted to have an acute kidney injury. She has been started on Unasyn. She is noted to have rapid shallow breathing secondary to abdominal pain. She denies cough, hemoptysis, sputum production. Past Medical History Medical History: None Cardiac Medical History: Reports: Hypertension Malignancy Medical History: Reports: None GI Medical History: Reports: None Psychiatric Medical History: Reports: None Past Surgical History Past Surgical History: Reports: Section - 10/30/2016 Social History Information Source: Patient, Relative Lives with: Family Smoking Status: Never Smoker Frequency of Alcohol Use: None Hx Recreational Drug Use: No Hx Prescription Drug Abuse: No - Advance Directive Resuscitation Status: Full Code Family History Family History: Reviewed & Not Pertinent Parental Family History Reviewed: Yes Children Family History Reviewed: Yes Sibling(s) Family History Reviewed.: Yes Medication/Allergy Home Medications: Pnv No.122/Iron/Folic Acid [ Multi Tablet] 1 each PO DAILY 10/29/16 Docusate Sodium [Colace 100 mg Capsule] 100 mg PO BID #60 capsule 11/01/16 Ferrous Sulfate [Feosol 325 mg Tablet] 325 mg PO TID #60 tablet 11/01/16 Ibuprofen [Motrin 800 mg Tablet] 800 mg PO Q6 #60 tablet 11/01/16 Oxycodone HCl/Acetaminophen [Percocet 5-325 mg Tablet] 2 tab PO Q4HP PRN #60 tablet 11/01/16 Allergies/Adverse Reactions: No Known Allergies Allergy (Verified 09/19/16 18:20) Review of Systems Constitutional: PRESENT: anorexia, chills, fever(s), weakness. ABSENT: headache (s), weight gain, weight loss Eyes: ABSENT: visual disturbances Ears: ABSENT: hearing changes Cardiovascular: ABSENT: chest pain, dyspnea on exertion, edema, orthropnea, palpitations Respiratory: PRESENT: dyspnea. ABSENT: cough, hemoptysis Gastrointestinal: PRESENT: abdominal pain. ABSENT: constipation, diarrhea, hematemesis, hematochezia, nausea, vomiting Genitourinary: ABSENT: dysuria, hematuria Musculoskeletal: ABSENT: joint swelling Integumentary: ABSENT: rash, wounds Neurological: ABSENT: abnormal gait, abnormal speech, confusion, dizziness, focal weakness, syncope Psychiatric: ABSENT: anxiety, depression, homidical ideation, suicidal ideation Endocrine: ABSENT: cold intolerance, heat intolerance, polydipsia, polyuria Hematologic/Lymphatic: ABSENT: easy bleeding, easy bruising Physical Exam Vital Signs: Temp Pulse Resp BP Pulse Ox 100.2 F 144 H 64 H 144/85 H 97 11/06/16 07:57 11/06/16 07:57 11/06/16 07:57 11/06/16 07:57 11/06/16 07:57 Intake & Output 11/05/16 11/06/16 11/07/16 06:59 06:59 06:59 Intake Total 400 Output Total 2000 Balance -1600 Weight 109.32 kg Results Laboratory Results: 11/06/16 07:16 11/06/16 07:16 11/05/16 11/05/16 11/05/16 16:40 16:40 16:40 WBC 16.8 H RBC 3.01 L Hgb 7.6 L Hct 22.5 L MCV 75 L MCH 25.4 L MCHC 34.0 RDW 18.5 H Plt Count 427 Seg Neutrophils % Not Reportable Lymphocytes % Not Reportable Monocytes % Not Reportable Eosinophils % Not Reportable Basophils % Not Reportable Absolute Neutrophils Not Reportable Absolute Lymphocytes Not Reportable Absolute Monocytes Not Reportable Absolute Eosinophils Not Reportable Absolute Basophils Not Reportable Sodium 137.7 Potassium 4.3 Chloride 99 Carbon Dioxide 20 L Anion Gap 19 BUN 31 H Creatinine 1.56 H Est GFR ( Amer) 48 L Est GFR (Non-Af Amer) 40 L Glucose 102 Lactic Acid Calcium 8.9 Total Bilirubin AST ALT Alkaline Phosphatase Total Protein Albumin Blood Type B POSITIVE Antibody Screen NEGATIVE 11/06/16 11/06/16 11/06/16 02:33 07:16 07:16 WBC 11.5 H 11.3 H RBC 3.14 L 3.27 L Hgb 8.2 L 8.5 L Hct 23.4 L 24.3 L MCV 75 L 74 L MCH 26.2 L 26.2 L MCHC 35.1 35.2 RDW 18.6 H 18.6 H Plt Count 382 447 Seg Neutrophils % Not Reportable Lymphocytes % Not Reportable Monocytes % Not Reportable Eosinophils % Not Reportable Basophils % Not Reportable Absolute Neutrophils Not Reportable Absolute Lymphocytes Not Reportable Absolute Monocytes Not Reportable Absolute Eosinophils Not Reportable Absolute Basophils Not Reportable Sodium 140.2 Potassium 4.6 Chloride 103 Carbon Dioxide 23 Anion Gap 14 BUN 40 H Creatinine 1.78 H Est GFR ( Amer) 41 L Est GFR (Non-Af Amer) 34 L Glucose 93 Lactic Acid Calcium 8.6 Total Bilirubin 1.8 H AST 33 ALT 28 Alkaline Phosphatase 115 Total Protein 5.7 L Albumin 2.4 L Blood Type Antibody Screen 11/06/16 07:24 WBC RBC Hgb Hct MCV MCH MCHC RDW Plt Count Seg Neutrophils % Lymphocytes % Monocytes % Eosinophils % Basophils % Absolute Neutrophils Absolute Lymphocytes Absolute Monocytes Absolute Eosinophils Absolute Basophils Sodium Potassium Chloride Carbon Dioxide Anion Gap BUN Creatinine Est GFR ( Amer) Est GFR (Non-Af Amer) Glucose Lactic Acid 2.2 H Calcium Total Bilirubin AST ALT Alkaline Phosphatase Total Protein Albumin Blood Type Antibody Screen Impressions: Acute Abdomen Series 11/05/16 00:00 IMPRESSION: Ernesto post section. No free intraperitoneal air. Air in stomach small bowel and colon with few air-fluid levels likely an ileus KUB X-Ray 11/05/16 00:00 IMPRESSION: NG tube with its tip at the level of the mid stomach Assessment & Plan - Diagnosis (1) Sepsis Is this a current diagnosis for this admission?: YesPlan: This is likely secondary to peritonitis. Patient has been started on IV Unasyn by Dr. Shepherd of [facility]. CT scan of the abdomen and pelvis has been ordered by Dr. Patterson. Patient has been transferred to the intensive care unit. Blood pressure stable at this time. Chest x-ray shows no acute process. Check blood cultures, urinalysis, urine culture. (2) Peritonitis Is this a current diagnosis for this admission?: YesPlan: Likely complication of recent 7 days ago. Continue IV Unasyn. [facility] following. Dr. Monge of surgery also consulted. Awaiting CT scan of abdomen/ pelvis. If patient has urologic injury may need to consult urology and/or transfer to tertiary care facility. I will defer management of these issues to Dr. Shepherd. (3) Acute kidney injury Is this a current diagnosis for this admission?: YesPlan: Continue aggressive IV fluids of normal saline at 250 an hour. Start patient on Mucomyst 4 doses as she will need IV contrast for CT scan of abdomen/ pelvis. Monitor renal function closely. (4) Tachypnea Is this a current diagnosis for this admission?: YesPlan: Patient has normal lung exam, unremarkable chest x-ray, normal O2 sat. I think patient has tachypnea secondary to intraperitoneal pain rather than primary pulmonary issue. Patient will be monitored closely in the intensive care unit. Check ABG. (5) Acute blood loss anemia Is this a current diagnosis for this admission?: YesPlan: Monitor H&H closely. Transfuse for hemoglobin less than 8.0. (6) delivery delivered Is this a current diagnosis for this admission?: Yes (7) Gestational hypertension Is this a current diagnosis for this admission?: YesPlan: Avoid scheduled medications for now secondary to ongoing sepsis. Blood pressure likely slightly elevated secondary to pain. Order when necessary IV hydralazine for excessively elevated blood pressures. - Time Time Spent: Greater than 70 Minutes
[2016-11-06] MEDS ORDERED: AMPICILLIN SODIUM/SULBACTAM NA 3 GM in NORMAL SALINE 100 ML IV SCH (12:00)
[2016-11-06 12:21] LABS: ARTERIAL BLOOD BASE EXCESS -1.4 mmol/L; ARTERIAL BLOOD O2 SATURATION 93.4 % (94-98)
[2016-11-06] MEDS ORDERED: ACETYLCYSTEINE INJ 6000 MG/30 ML IV SCH (12:30)
[2016-11-06] MEDS ORDERED: ACETYLCYSTEINE 20% SOLN 6000 MG/30 ML VIAL PO ONE (12:30)
[2016-11-06] MEDS ORDERED: ACETAMINOPHEN 100 ML IV ONE (12:45)
[2016-11-06] MEDS ORDERED: MIDAZOLAM HCL 100 ML IV PRN (13:18)
[2016-11-06] MEDS ORDERED: MIDAZOLAM 2 MG/2 ML INJ ONE (13:28)
[2016-11-06] MEDS ORDERED: PROPOFOL 100 ML IV ONE (13:28)
[2016-11-06] MEDS ORDERED: PHARMACY COMMUNICATION ORDER MC NR (13:30)
[2016-11-06 14:23] LABS: APPEARANCE,URINE CLOUDY; BILIRUBIN,URINE NEGATIVE (NEGATIVE); GLUCOSE, URINE NEGATIVE (NEGATIVE); KETONES,URINE TRACE mg/dL (NEGATIVE); LEUKOCYTE ESTERASE,URINE NEGATIVE (NEGATIVE); NITRITE,URINE NEGATIVE (NEGATIVE); PROTEIN,URINE 100 mg/dL (NEGATIVE); URINE SPECIFIC GRAVITY 1.019; UROBILINOGEN,URINE NEGATIVE mg/dL (<2.0)
[2016-11-06] MEDS ORDERED: PROPOFOL 100 ML IV PRN (14:23)
[2016-11-06 16:08] LABS: ARTERIAL BLOOD BASE EXCESS -1.6 mmol/L; ARTERIAL BLOOD O2 SATURATION 99.6 % (94-98)
[2016-11-06 16:31] LABS: HEMATOCRIT 20.7 % (36.0-47.0); HGB HCT DIFFERENCE 0.9; MEAN CORPUSCULAR HEMOGLOBIN 26.3 pg (27.0-33.4); MEAN CORPUSCULAR HGB CONC 34.9 g/dL (32.0-36.0); MEAN CORPUSCULAR VOLUME 75 fl (80-97); RED BLOOD COUNT 2.75 10^6/uL (3.72-5.28); RED CELL DISTRIBUTION WIDTH 18.7 % (11.5-14.0); WHITE BLOOD COUNT 9.4 10^3/uL (4.0-10.5)
[2016-11-06 16:41] LABS: HEMOGLOBIN 7.2 g/dL (12.0-15.5)
[2016-11-06 16:47] LABS: BAND NEUTROPHILS % (MANUAL) 7 % (3-5); BASOPHILS % (MANUAL) 0 % (0-2); EOSINOPHILS % (MANUAL) 1 % (0-6); LYMPHOCYTES % (MANUAL) 13 % (13-45); TOTAL CELLS COUNTED 100
[2016-11-06 16:48] LABS: ANISOCYTOSIS 2+; HYPOCHROMASIA 1+; MICROCYTOSIS 1+; TOXIC GRANULATION SLIGHT
[2016-11-06 16:50] LABS: ALANINE AMINOTRANSFERASE 32 U/L (9-52); ALBUMIN 2.1 g/dL (3.5-5.0); ALKALINE PHOSPHATASE 89 U/L (38-126); ANION GAP 11 (5-19); ASPARTATE AMINO TRANSFERASE 32 U/L (14-36); BILIRUBIN,DIRECT 0.2 mg/dL (0.0-0.3); BILIRUBIN,TOTAL 1.8 mg/dL (0.2-1.3); BLOOD UREA NITROGEN 40 mg/dL (7-20); CARBON DIOXIDE 22 mmol/L (22-30); CHLORIDE 107 mmol/L (98-107); CREATININE RESULT 1.23 mg/dL (0.52-1.25); GLUCOSE 95 mg/dL (75-110); POTASSIUM 4.3 mmol/L (3.6-5.0); SODIUM 139.9 mmol/L (137-145); TOTAL PROTEIN 5.1 g/dL (6.3-8.2)
[2016-11-06 19:00] VITALS: BP 146/84
[2016-11-06] MEDS ORDERED: ACETYLCYSTEINE 20% SOLN 6000 MG/30 ML VIAL PO SCH (22:00)
--- NOTE | 2016-11-07 09:28 | TRANSFER SUMMARY E ---
Transfer Summary NAME: MEHNAZ RANDHAWA : 1990 AGE: 26Y ADMITTED: 11/05/2016 TRANSFERRED: 11/06/2016 HOSPITAL COURSE: The patient is a 26-year-old para 1 who is status post primary on October 30, 2016 for arrested labor and gestational hypertension. Her postop course was complicated by anemia requiring one unit of packed red cells during her hospital stay. She returned to clinic on November 05 complaining of increased abdominal distention and nausea. Imaging was found to have an ileus and NG-tube was placed and she had almost 2 liters out over night. On readmission, her white count was noted to be elevated at 16.8. She was placed on IV Unasyn over night and was it decreased to 11.3 by the morning. Hemoglobin and hematocrit were 7.6 and 22.5 on arrival and she was given 1 unit prbc with increase to 8.2 and 23.4 by morning. However, on arrival her creatinine was 1.56 and it increased to 1.78 on the morning of November 06. This was after IV hydration and blood. Her lactic acid on the morning of November 06 was 2.2. On my arrival she had peritoneal signs with significant pain precluding her from laying flat and leading to tachypnea to the 60s and tachycardia to the 150s. She was transferred to the ICU. Her T-max was 102. She was intubated so that we could lay her down and obtain imaging. Her CT showed a large fluid collection at least 15 cm in the pelvis. Initially she did receive a small amount of IV contrast which did not extravasate into that area. After more aggressive IV hydration in the ICU, her creatinine did come down to 1.23 and her lactic acid normalized at 1.3. However, her H and H dropped again to 7.2 and 20.7. We will therefore be obtaining 2 more units of blood to transfuse en route. Currently her vital signs are 100.9, heart rate is 128, blood pressure 137/84. Her FiO2 requirement is 40% on the ventilator. Her abdomen is still very distended with diminished bowel sounds. Due to her sepsis, ileus and large fluid collection, probably infected hematoma and need for surgery, it was felt to be most prudent after discussing to transfer her to tertiary care facility. Dr. Monge of general surgery here saw patient in consultation and agreed with this decision. Dr. Poe of Surgery at [facility] accepts the patient in transfer. In the meantime, we will keep her IV antibiotics going. She also has NG tube and ventilator. She will be getting 2 units of blood en route. We will transfer her when air lift is available. DICTATING PHYSICIAN: SHAMIR BULLOCK M.D. [id number] PHY#: [id number] ID: [id number] JOB#: [id number] ACCT: [id number] cc:SHAMIR BULLOCK M.D. > MTDD
--- NOTE | 2016-11-07 13:56 | PDOC CONSULTATION ---
Consultation Consult Date: 11/06/16 Attending physician:: MARQUISE RANDHAWA Consult reason:: acute onset dypsnea History of Present Illness Admission Date/PCP: 11/05/16 16:37 SHAILESH METZ MD History of Present Illness: All information from chart as patient is currently intubated and sedated MEHNAZ RANDHAWA is a 26 year old female that is one week status post presents to the hospital for abdominal pain and fevers. She has been admitted to the [facility] for sepsis. She is also noted to have an acute kidney injury. She has been started on Unasyn. She is noted to have rapid shallow breathing secondary to abdominal pain. She denies cough, hemoptysis, sputum production. She apparently complains of abdominal pain and distention because of her tachypnea and she was sent to ICU intubated. Past Medical History Cardiac Medical History: Reports: Hypertension Malignancy Medical History: Reports: None GI Medical History: Reports: None Psychiatric Medical History: Reports: None Past Surgical History Past Surgical History: Reports: Section - 10/30/2016 Social History Information Source: [facility] Records Lives with: Family Smoking Status: Never Smoker Frequency of Alcohol Use: None Hx Recreational Drug Use: No Hx Prescription Drug Abuse: No - Advance Directive Resuscitation Status: Full Code Family History Family History: Reviewed & Not Pertinent Parental Family History Reviewed: No Children Family History Reviewed: No Sibling(s) Family History Reviewed.: No Medication/Allergy Home Medications: Pnv No.122/Iron/Folic Acid [ Multi Tablet] 1 each PO DAILY 10/29/16 Docusate Sodium [Colace 100 mg Capsule] 100 mg PO BID #60 capsule 11/01/16 Ferrous Sulfate [Feosol 325 mg Tablet] 325 mg PO TID #60 tablet 11/01/16 Ibuprofen [Motrin 800 mg Tablet] 800 mg PO Q6 #60 tablet 11/01/16 Oxycodone HCl/Acetaminophen [Percocet 5-325 mg Tablet] 2 tab PO Q4HP PRN #60 tablet 11/01/16 Allergies/Adverse Reactions: No Known Allergies Allergy (Verified 09/19/16 18:20) Review of Systems ROS unobtainable: Due to endotracheal tube Physical Exam Vital Signs: Temp Pulse Resp BP Pulse Ox 101.5 F H 147 H 36 H 174/94 H 99 11/06/16 10:00 11/06/16 10:00 11/06/16 10:00 11/06/16 10:00 11/06/16 13:50 Intake & Output 11/05/16 11/06/16 11/07/16 06:59 06:59 06:59 Intake Total 400 Output Total 2000 400 Balance -1600 -400 Weight 109.32 kg General appearance: PRESENT: disheveled, morbidly obese Head exam: PRESENT: atraumatic, normocephalic Eye exam: PRESENT: conjunctiva pale Mouth exam: PRESENT: neck supple, tongue midline, other - Tracheal tube in place Neck exam: ABSENT: carotid bruit, JVD, lymphadenopathy, thyromegaly Respiratory exam: PRESENT: crackles, prolonged expiratory phas, rhonchi, symmetrical, unlabored Cardiovascular exam: PRESENT: RRR, +S1, +S2 Pulses: PRESENT: normal radial pulses GI/Abdominal exam: PRESENT: distended Rectal exam: PRESENT: deferred Gentrourinary exam: PRESENT: indwelling catheter Skin exam: PRESENT: warm Results Laboratory Results: 11/06/16 07:16 11/06/16 07:16 11/05/16 11/05/16 11/05/16 16:40 16:40 16:40 WBC 16.8 H RBC 3.01 L Hgb 7.6 L Hct 22.5 L MCV 75 L MCH 25.4 L MCHC 34.0 RDW 18.5 H Plt Count 427 Seg Neutrophils % Not Reportable Lymphocytes % Not Reportable Monocytes % Not Reportable Eosinophils % Not Reportable Basophils % Not Reportable Absolute Neutrophils Not Reportable Absolute Lymphocytes Not Reportable Absolute Monocytes Not Reportable Absolute Eosinophils Not Reportable Absolute Basophils Not Reportable Carbonic Acid HCO3/H2CO3 Ratio ABG pH ABG pCO2 ABG pO2 ABG HCO3 ABG O2 Saturation ABG Base Excess FiO2 Sodium 137.7 Potassium 4.3 Chloride 99 Carbon Dioxide 20 L Anion Gap 19 BUN 31 H Creatinine 1.56 H Est GFR ( Amer) 48 L Est GFR (Non-Af Amer) 40 L Glucose 102 Lactic Acid Calcium 8.9 Total Bilirubin AST ALT Alkaline Phosphatase Total Protein Albumin Blood Type B POSITIVE Antibody Screen NEGATIVE 11/06/16 11/06/16 11/06/16 02:33 07:16 07:16 WBC 11.5 H 11.3 H RBC 3.14 L 3.27 L Hgb 8.2 L 8.5 L Hct 23.4 L 24.3 L MCV 75 L 74 L MCH 26.2 L 26.2 L MCHC 35.1 35.2 RDW 18.6 H 18.6 H Plt Count 382 447 Seg Neutrophils % Not Reportable Lymphocytes % Not Reportable Monocytes % Not Reportable Eosinophils % Not Reportable Basophils % Not Reportable Absolute Neutrophils Not Reportable Absolute Lymphocytes Not Reportable Absolute Monocytes Not Reportable Absolute Eosinophils Not Reportable Absolute Basophils Not Reportable Carbonic Acid HCO3/H2CO3 Ratio ABG pH ABG pCO2 ABG pO2 ABG HCO3 ABG O2 Saturation ABG Base Excess FiO2 Sodium 140.2 Potassium 4.6 Chloride 103 Carbon Dioxide 23 Anion Gap 14 BUN 40 H Creatinine 1.78 H Est GFR ( Amer) 41 L Est GFR (Non-Af Amer) 34 L Glucose 93 Lactic Acid Calcium 8.6 Total Bilirubin 1.8 H AST 33 ALT 28 Alkaline Phosphatase 115 Total Protein 5.7 L Albumin 2.4 L Blood Type Antibody Screen 11/06/16 11/06/16 07:24 11:30 WBC RBC Hgb Hct MCV MCH MCHC RDW Plt Count Seg Neutrophils % Lymphocytes % Monocytes % Eosinophils % Basophils % Absolute Neutrophils Absolute Lymphocytes Absolute Monocytes Absolute Eosinophils Absolute Basophils Carbonic Acid 0.87 L HCO3/H2CO3 Ratio 24:1 ABG pH 7.49 H ABG pCO2 29.0 L ABG pO2 60.7 L ABG HCO3 21.4 ABG O2 Saturation 93.4 L ABG Base Excess -1.4 FiO2 3LM Sodium Potassium Chloride Carbon Dioxide Anion Gap BUN Creatinine Est GFR ( Amer) Est GFR (Non-Af Amer) Glucose Lactic Acid 2.2 H Calcium Total Bilirubin AST ALT Alkaline Phosphatase Total Protein Albumin Blood Type Antibody Screen Impressions: Acute Abdomen Series 11/05/16 00:00 IMPRESSION: [place] post section. No free intraperitoneal air. Air in stomach small bowel and colon with few air-fluid levels likely an ileus KUB X-Ray 11/05/16 00:00 IMPRESSION: NG tube with its tip at the level of the mid stomach Assessment & Plan - Diagnosis (1) Acute kidney injury Is this a current diagnosis for this admission?: YesPlan: Etiology not clear and does limit the amount of contrast studies that can undertake while it is most likely her primary problems are abdominal. cannot rule out possible PE especially with current ABG PO2 of 60 ,on FiO2 of 100% we will repeat ABG (2) Sepsis Is this a current diagnosis for this admission?: Yes (3) Tachypnea Is this a current diagnosis for this admission?: YesPlan: Intubated can control will compensate for metabolic acidosis with less stress to patient - Time Critical Time spent with patient: 35 or more minutes - 70 minutes
== END 2016-11-06 19:11 | disposition short-term general hospital (02) | DRG 774 ==
LOC: UNDOADMOB 15:58 → LR 15:58 → 2S 15:58 → OBSVTOIN 16:37 → ICU 11-06 11:23
PROVIDERS: ADMIT Obstetrics & Gynecology; ATTEND Obstetrics & Gynecology
PROC: 0D9670Z Drainage of Stomach with Drainage Device, Via Natural or Artificial Opening (ICD-10-PCS; principal; 2016-11-05)
PROC: 30233N1 Transfusion of Nonautologous Red Blood Cells into Peripheral Vein, Percutaneous Approach (ICD-10-PCS; 2016-11-05)
PROC: 5A1935Z Respiratory Ventilation, Less than 24 Consecutive Hours (ICD-10-PCS; 2016-11-06)
PROC: 0BH17EZ Insertion of Endotracheal Airway into Trachea, Via Natural or Artificial Opening (ICD-10-PCS; 2016-11-06)
DX: O75.4 Other complications of obstetric surgery and procedures (principal); K56.7 Ileus, unspecified; D62 Acute posthemorrhagic anemia; O85 Puerperal sepsis; O90.4 Postpartum acute kidney failure; O90.89 Other complications of the puerperium, not elsewhere classified; N36.8 Other specified disorders of urethra; O90.81 Anemia of the puerperium; O13.5 Gestational [pregnancy-induced] hypertension without significant proteinuria, complicating the puerperium; Z78.1 Physical restraint status
CPT/HCPCS: 31500; 36415; 36430; 36600; 71010; 74000; 74022; 74178; 80048; 80053; 81001; 82803; 83605; 85025; 85027; 86850; 86900; 86901; 86920; 87040; 87077; 87086; 87186; 94002; J0131; J0295; J1170; J1200; J2060; J2765; J3490; J7030; P9016